=== PATIENT | female | born 1965 | race African-American/Black ===

== ENCOUNTER 2016-12-15 07:53 | Emergency (ER) | payer MEDICARE, MEDICAID ==
[~2016-12-15] VITALS: Ht 162.6 cm; Wt 136.1 kg
[~2016-12-15 07:53] MED LIST: ALBUTEROL SULF8.5 GM INH; FLUOXETINE HCL40 MG; FUROSEMIDE40 MG ORAL; GABAPENTIN300 MG; HYDROCODON-ACE1 EA13; LEVOTHYROXINE100 MCG PO; METHYLPREDNISOLO4 M2; NORETHINDRONE AC5 MG PO; PREDNISONE20 MG ORAL; SYMBICORT 16010.2 G1
[2016-12-15] MEDS ORDERED: NEOMYCIN-POLYMY10 ML OT (08:22)
[2016-12-15] MEDS ORDERED: LINESS PO (08:22)
[2016-12-15] MEDS ORDERED: PROAIR HFA8.5 GM INH (08:22)
[2016-12-15] MEDS ORDERED: ATARAX25 MG ORAL (08:22)
[2016-12-15] MEDS ORDERED: LISINOPRIL20 MG ORAL (08:22)
[2016-12-15] MEDS ORDERED: CARVEDILOL12.5 MG ORAL (08:22)
[2016-12-15] MEDS ORDERED: Norco 5mg/325mg tab ORAL ONE (08:30)
--- NOTE | 2016-12-15 08:34 | Emergency Room Report ---
History of Present Illness General Chief Complaint: Chest Pain Source: Patient Present Illness HPI Patient presents with left-sided chest pain. Been going on for 3 days. She is uncertain how began but she felt it in her left breast. She has not noticed any masses there. It's more positional and worsened when she bends over. She also has some corresponding pain in her left upper back. She has no medication to take at home for pain at this time. Pain is 7/10. Intermittent. Nonexertional. She has a history of fibromyalgia. She received a steroid injection last month for a sinus infection. Since that time she's felt some swelling in her arms. She has a history of congestive heart failure also. She states that she's had some swelling in her ankles recently. There's no calf pain. She has no hemoptysis and has not had blood clots in the past. The patient was unable to sleep last night. She has a history of sleep apnea. The pain kept her awake. She has no Charlotte at home at this time. She denies any fevers, nausea, vomiting, diarrhea or dysuria. No mammogram in the past. She doesn't feel mass or have d/c. Allergies: Coded Allergies: ASPIRIN (Unverified Allergy, Unknown, 01/13/14) [place] (Unverified Allergy, Unknown, 01/13/14) PENICILLINS (Unverified Allergy, Unknown, 01/13/14) SULFA (SULFONAMIDE ANTIBIOTICS) (Unverified Allergy, Unknown, 01/13/14) Patient History Past Medical History: see triage record Social History: Denies: alcohol use, drug use, smoking Social History Narrative Brought by course instructor Reviewed Nursing Documentation: PMH: Agreed, PSxH: Agreed Nursing Documentation-PMH Past Medical History: No History, Except For Hx Hypertension: Yes Hx Pacemaker: No Hx Asthma: No Hx COPD: Yes Hx Diabetes: No Hx Cancer: No Hx Gastrointestinal Problems: Yes Hx Dialysis: No History Of Psychiatric Problem: Yes - depression anxiety Hx Neurological Problems: No Hx Cerebrovascular Accident: Yes - CVA Hx Seizures: No Hx Dizziness: Yes Hx Weakness: Yes Review of Systems All Other Systems: negative except mentioned in HPI Physical Exam Vital Signs Date Time Temp Pulse Resp B/P Pulse Ox O2 Delivery O2 Flow Rate FiO2 12/15/16 08:05 98.2 91 24 133/74 96 Room Air Sp02 EP Interpretation: reviewed, normal General Appearance: well appearing, no apparent distress, GCS 15, obese Head: normocephalic, atraumatic Eyes: bilateral eye PERRL, bilateral eye normal inspection ENT: moist mucus membranes Neck: supple Respiratory: lungs clear, normal breath sounds, other - upper back muscle tenderness Cardiovascular #1: regular rate, rhythm, no edema Cardiovascular #2: 2+ radial (R) Gastrointestinal: normal inspection, normal bowel sounds, non tender, no mass, non-distended, overweight Musculoskeletal: back normal, digits/nails normal, gait/station normal, normal range of motion, non-tender, no calf tenderness Neurologic: alert, oriented x3, motor strength/tone normal, sensory intact, grossly normal Psychiatric: mood/affect normal Skin: normal inspection, warm/dry Medical Decision Making Diagnostic Impression: Primary Impression: Chest pain Qualified Codes: R07.1 - Chest pain on breathing Additional Impression: Morbid obesity with body mass index (BMI) greater than or equal to 50 ER Course The patient presents with left-sided chest pain. The history is more consistent with musculoskeletal pain however to exclude cardiac cause. Physical exam is against pulmonary embolus. Also she has no cough or symptoms of COPD or bronchitis. Evaluation will be with EKG, labs and chest x-ray. The patient will be treated with Charlotte. She has an aspirin allergy. EKG no sig changes. CXR negative. Labs unremarkable (normal troponin). Patient improved with treatment. Patient stable for outpatient observation and treatment. Laboratory Tests Test 12/15/16 08:35 White Blood Count 4.9 K/UL (4.8-10.8) Red Blood Count 4.44 M/UL (4.20-5.40) Hemoglobin 9.3 G/DL (12.0-16.0) L Hematocrit 33.4 % (37.0-47.0) L Mean Corpuscular Volume 75 FL (80-99) L Mean Corpuscular Hemoglobin 21.0 PG (27.0-31.0) L Mean Corpuscular Hemoglobin Concent 27.9 G/DL (32.0-36.0) L Red Cell Distribution Width 17.6 % (11.6-14.8) H Platelet Count 325 K/UL (150-450) Mean Platelet Volume 6.2 FL (6.5-10.1) L Neutrophils (%) (Auto) 49.7 % (45.0-75.0) Lymphocytes (%) (Auto) 37.9 % (20.0-45.0) Monocytes (%) (Auto) 8.1 % (1.0-10.0) Eosinophils (%) (Auto) 2.7 % (0.0-3.0) Basophils (%) (Auto) 1.6 % (0.0-2.0) Prothrombin Time 10.6 SEC (9.30-11.50) Prothrombin Time INR 1.0 (0.9-1.1) PTT 26 SEC (23-33) Sodium Level 139 mEQ/L (135-145) Potassium Level 4.2 mEQ/L (3.4-4.9) Chloride Level 99 mEQ/L (98-107) Carbon Dioxide Level 27 mEQ/L (20-30) Anion Gap 13 (5-15) Blood Urea Nitrogen 9 mg/dL (7-23) Creatinine 0.6 mg/dL (0.5-0.9) Estimate Glomerular Filtration Rate > 60 mL/min (>60) Glucose Level 93 mg/dL (74-106) Calcium Level 8.8 mg/dL (8.6-10.2) Total Bilirubin 0.2 mg/dL (0.0-1.2) Aspartate Amino Transferase (AST) 19 U/L (5-40) Alanine Aminotransferase (ALT) 10 U/L (3-33) Alkaline Phosphatase 92 U/L (35-104) Total Creatine Kinase 86 U/L (26-140) Troponin I < 0.30 ng/mL (<=0.30) Pro-B-Type Natriuretic Peptide 64 pg/mL (0-125) Total Protein 7.7 g/dL (6.6-8.7) Albumin 3.6 g/dL (3.5-5.2) Globulin 4.1 g/dL Albumin/Globulin Ratio 0.8 (1.0-2.7) L EKG Diagnostic Results Rate: normal Rhythm: NSR ST Segments: no acute changes Rhythm Strip Diag. Results EP Interpretation: yes Rhythm: NSR, no PVC's, no ectopy Chest X-Ray Diagnostic Results EP Interpretation: Yes Findings: no consolidation, no effusion, no pneumothorax, no acute cardiopulmonary disease Number of Views: 1 Last Vital Signs Date Time Temp Pulse Resp B/P Pulse Ox O2 Delivery O2 Flow Rate FiO2 12/15/16 10:57 98.2 75 15 139/69 99 Room Air Status: improved Disposition: HOME, SELF-CARE Condition: Improved Scripts Hydrocodone Bit/Acetaminophen 5-325* (NORCO 5-325*) 1 Each Tablet 1 TAB ORAL Q6H Y for For Pain, #10 TAB 0 Refills Prov: Claudy Mir M.D. 12/15/16 Claudy Mir M.D. Dec 15, 2016 08:34
[2016-12-15 08:37] VITALS: BP 146/79
[2016-12-15 09:04] LABS: BASOPHILS % (AUTO) 1.6 % (0.0-2.0); EOSINOPHILS % (AUTO) 2.7 % (0.0-3.0); LYMPHOCYTES % (AUTO) 37.9 % (20.0-45.0); MEAN CORPUSCULAR HGB CONC 27.9 G/DL (32.0-36.0); MEAN CORPUSCULAR VOLUME 75 FL (80-99); MEAN PLATELET VOLUME 6.2 FL (6.5-10.1); MONOCYTES % (AUTO) 8.1 % (1.0-10.0); NEUTROPHILS % (AUTO) 49.7 % (45.0-75.0); PLATELET COUNT 325 K/UL (150-450); RED BLOOD COUNT 4.44 M/UL (4.20-5.40); RED CELL DISTRIBUTION WIDTH 17.6 % (11.6-14.8); WHITE BLOOD COUNT 4.9 K/UL (4.8-10.8)
[2016-12-15 09:10] LABS: PROTHROMBIN TIME 10.6 SEC (9.30-11.50)
[2016-12-15 09:37] LABS: TROPONIN I < 0.30 ng/mL (<=0.30)
[2016-12-15 09:40] LABS: ALANINE AMINOTRANSFERASE 10 U/L (3-33); ALBUMIN/GLOBULIN RATIO 0.8 (1.0-2.7); ANION GAP 13 (5-15); ASPARTATE AMINO TRANSFERASE 19 U/L (5-40); CALCIUM 8.8 mg/dL (8.6-10.2); CARBON DIOXIDE 27 mEQ/L (20-30); CHLORIDE 99 mEQ/L (98-107); CREATININE 0.6 mg/dL (0.5-0.9); GLOMERULAR FILTRATION RATE > 60 mL/min (>60); HEMOLYSIS 16; POTASSIUM 4.2 mEQ/L (3.4-4.9); SODIUM 139 mEQ/L (135-145); TOTAL PROTEIN 7.7 g/dL (6.6-8.7)
--- NOTE | 2016-12-15 10:15 | Diagnostic Imaging Report ---
Indication: Chest Pain Comparison: 04/15/14 A single view chest radiograph was obtained. Findings: Mild interstitial edema present. The heart is mildly enlarged. Bones are slightly osteopenic. Impression: Mild CHF suspected
[2016-12-15 10:45] VITALS: BP 139/69
[2016-12-15] MEDS ORDERED: NORCO 5-325 TA1 EACH ORAL (10:48)
[2016-12-15 10:57] VITALS: BP 139/69
--- NOTE | 2016-12-15 16:36 | Cardiology Report ---
APPROVED REPORT EKG Measurement Heart [id number] Normal sinus rhythm Normal ECG
== END 2016-12-15 10:58 | disposition home or self-care (01) ==
LOC: EMR 08:32
DX: R07.1 Chest pain on breathing (principal); E66.01 Morbid (severe) obesity due to excess calories; Z68.43 Body mass index [BMI] 50.0-59.9, adult; M54.9 Dorsalgia, unspecified; M79.7 Fibromyalgia; Z88.6 Allergy status to analgesic agent; Z88.2 Allergy status to sulfonamides; Z88.0 Allergy status to penicillin; I10 Essential (primary) hypertension; G47.30 Sleep apnea, unspecified; I50.9 Heart failure, unspecified; Z86.73 Personal history of transient ischemic attack (TIA), and cerebral infarction without residual deficits; Z86.59 Personal history of other mental and behavioral disorders; J44.9 Chronic obstructive pulmonary disease, unspecified
CPT/HCPCS: 36415; 71010; 80053; 82550; 83880; 84484; 85025; 85610; 85730; 93005; 99283

== ENCOUNTER 2018-08-20 14:56 | Emergency (ER) | payer MEDICARE, MEDICAID ==
[~2018-08-20] VITALS: Ht 162.6 cm; Wt 127.0 kg
[~2018-08-20 14:56] MED LIST changes: +ATARAX25 MG ORAL; +CARVEDILOL12.5 MG ORAL; +LINESS PO; +LISINOPRIL20 MG ORAL; +NEOMYCIN-POLYMY10 ML OT; +NORCO 5-325 TA1 EACH ORAL; +PROAIR HFA8.5 GM INH
[2018-08-20 15:05] VITALS: BP 113/70
[2018-08-20] MEDS ORDERED: PROTONIX40 MG ORAL (15:13)
[2018-08-20] MEDS ORDERED: DICLOFENAC SODI75 MG ORAL (15:13)
[2018-08-20] MEDS ORDERED: Bacitracin Oint UD TOPIC ONE ×3 (15:24→15:45)
[2018-08-20] MEDS ORDERED: Morphine Sulfate 4mg/ml Inj (IV/IM USE ONLY) IVP ONE (15:30)
--- NOTE | 2018-08-20 15:32 | Emergency Room Report ---
History of Present Illness General Chief Complaint: Skin Rash/Abscess Source: Patient Present Illness HPI Patient present to the ER with complaints of ongoing wound to her left lower leg Patient has general home health nursing and also wound care that this is the patient wound care solid patient on Sunday had dressing changes I spoke to michael at [phone] Reports that she changed the dressing today she felt that there was increased fell smell to it over the past several weeks She also reports of the signs of the wound has increased from a quarter-sized to the size it is today Denies any fevers and eyes any chills patient herself complains of increased pain to the area Denies any other trauma Allergies: Coded Allergies: ASPIRIN (Unverified Allergy, Unknown, 01/13/14) [place] (Unverified Allergy, Unknown, 01/13/14) PENICILLINS (Unverified Allergy, Unknown, 01/13/14) SULFA (SULFONAMIDE ANTIBIOTICS) (Unverified Allergy, Unknown, 01/13/14) Patient History Past Medical History: see triage record Pertinent Family History: none Reviewed Nursing Documentation: PMH: Agreed; PSxH: Agreed Nursing Documentation-PMH Past Medical History: No History, Except For Hx Hypertension: Yes Hx Pacemaker: No Hx Asthma: No Hx COPD: Yes Hx Diabetes: No Hx Cancer: No Hx Gastrointestinal Problems: Yes Hx Dialysis: No Hx Neurological Problems: No Hx Cerebrovascular Accident: Yes - CVA Hx Seizures: No Hx Dizziness: Yes Hx Weakness: Yes Review of Systems All Other Systems: negative except mentioned in HPI Physical Exam Vital Signs Date Time Temp Pulse Resp B/P (MAP) Pulse Ox O2 Delivery O2 Flow Rate FiO2 08/20/18 15:03 97.7 73 19 111/66 97 Room Air Sp02 EP Interpretation: reviewed, normal General Appearance: no apparent distress Head: normocephalic, atraumatic Eyes: bilateral eye PERRL, bilateral eye EOMI ENT: hearing grossly normal, normal pharynx Neck: supple Respiratory: lungs clear Cardiovascular #1: regular rate, rhythm Gastrointestinal: non tender, soft Musculoskeletal: other - Approximately 4 x 3 cm wound on the left lower extremity laterally, the edges are clear and clean no obvious discharge, this appears to be a venous ulcer Neurologic: alert, oriented x3, responsive Skin: other - As above Lymphatic: no adenopathy Medical Decision Making Diagnostic Impression: Primary Impression: Venous stasis ulcer ER Course Given the patient's history and presentation Given the complaints ultrasound was obtained to rule out DVT This was negative patient's blood work reveals anemia with hemoglobin of 8.6 Patient reports that she did have significant transfusion several years ago However reports that she has not had any blood test performed over the past 3-4 years Anchors the patient to have improved follow-up with her primary physician patient appears to be receiving significant pain medication through pain specialty However further overall evaluation is recommended specifically repeat hemoglobin level next one month after taking iron pills Labs Test 08/20/18 15:45 White Blood Count 6.6 K/UL (4.8-10.8) Red Blood Count 4.09 M/UL (4.20-5.40) Hemoglobin 8.6 G/DL (12.0-16.0) Hematocrit 29.5 % (37.0-47.0) Mean Corpuscular Volume 72 FL (80-99) Mean Corpuscular Hemoglobin 21.0 PG (27.0-31.0) Mean Corpuscular Hemoglobin Concent 29.2 G/DL (32.0-36.0) Red Cell Distribution Width 17.7 % (11.6-14.8) Platelet Count 356 K/UL (150-450) Mean Platelet Volume 5.0 FL (6.5-10.1) Neutrophils (%) (Auto) 55.9 % (45.0-75.0) Lymphocytes (%) (Auto) 33.0 % (20.0-45.0) Monocytes (%) (Auto) 6.3 % (1.0-10.0) Eosinophils (%) (Auto) 3.8 % (0.0-3.0) Basophils (%) (Auto) 1.0 % (0.0-2.0) Sodium Level 139 MMOL/L (136-145) Potassium Level 4.1 MMOL/L (3.5-5.1) Chloride Level 102 MMOL/L (98-107) Carbon Dioxide Level 30 MMOL/L (21-32) Anion Gap 7 mmol/L (5-15) Blood Urea Nitrogen 15 mg/dL (7-18) Creatinine 0.9 MG/DL (0.55-1.30) Estimat Glomerular Filtration Rate > 60 mL/min (>60) Glucose Level 92 MG/DL (74-106) Calcium Level 9.0 MG/DL (8.5-10.1) CT/MRI/US Diagnostic Results CT/MRI/US Diagnostic Results : Impression left lower extremity venous ultrasound: negative Last Vital Signs Date Time Temp Pulse Resp B/P (MAP) Pulse Ox O2 Delivery O2 Flow Rate FiO2 08/20/18 15:03 97.7 73 19 111/66 97 Room Air Status: improved Disposition: HOME, SELF-CARE Condition: Improved Referrals: NON PHYSICIAN (PCP) Additional Instructions: Patient is provided with the discharge instructions notified to follow up with primary doctor in the next 2-3 days otherwise return to the er with any worsening symptoms. Please note that this report is being documented using ComActivity technology. This can lead to erroneous entry secondary to incorrect interpretation by the dictating instrument. Jelani Carranza DO Aug 20, 2018 15:32
[2018-08-20 15:53] LABS: EOSINOPHILS % (AUTO) 3.8 % (0.0-3.0); HEMATOCRIT 29.5 % (37.0-47.0); HEMOGLOBIN 8.6 G/DL (12.0-16.0); MEAN CORPUSCULAR VOLUME 72 FL (80-99); MONOCYTES % (AUTO) 6.3 % (1.0-10.0); NEUTROPHILS % (AUTO) 55.9 % (45.0-75.0); PLATELET COUNT 356 K/UL (150-450); RED BLOOD COUNT 4.09 M/UL (4.20-5.40); RED CELL DISTRIBUTION WIDTH 17.7 % (11.6-14.8); WHITE BLOOD COUNT 6.6 K/UL (4.8-10.8)
[2018-08-20 16:10] LABS: ANION GAP 7 mmol/L (5-15); BLOOD UREA NITROGEN 15 mg/dL (7-18); CARBON DIOXIDE 30 MMOL/L (21-32); CHLORIDE 102 MMOL/L (98-107); CREATININE 0.9 MG/DL (0.55-1.30); POTASSIUM 4.1 MMOL/L (3.5-5.1); SODIUM 139 MMOL/L (136-145)
[2018-08-20 16:37] VITALS: BP 112/68
--- NOTE | 2018-08-20 17:19 | Diagnostic Imaging Report ---
EXAM: US Duplex Left Lower Extremity Veins CLINICAL HISTORY: EMILY TECHNIQUE: Real-time duplex ultrasound scan of the left lower extremity veins integrating B-mode two-dimensional vascular structure, Doppler spectral analysis, color flow Doppler imaging and compression. COMPARISON: No relevant prior studies available. FINDINGS: Deep veins: Unremarkable. No DVT in the visualized common femoral, femoral, proximal deep femoral or popliteal veins. The veins demonstrate normal color flow, are normally compressible, with normal phasic flow and/or augmentation response. Superficial veins: No thrombus in the visualized segments of the greater saphenous vein. Soft tissues: No acute findings. IMPRESSION: No DVT demonstrated.
== END 2018-08-20 16:39 | disposition home or self-care (01) ==
LOC: EMR 15:27
DX: S81.802A Unspecified open wound, left lower leg, initial encounter (principal); I83.028 Varicose veins of left lower extremity with ulcer other part of lower leg; Z88.6 Allergy status to analgesic agent; Z88.0 Allergy status to penicillin; Z88.2 Allergy status to sulfonamides; I10 Essential (primary) hypertension; J44.9 Chronic obstructive pulmonary disease, unspecified; Z86.73 Personal history of transient ischemic attack (TIA), and cerebral infarction without residual deficits
CPT/HCPCS: 36415; 80048; 85025; 93971; 96374; 96375; 99284; J2270; J2405

== ENCOUNTER 2018-12-02 16:22 | Inpatient (IN) | payer MEDICARE, MEDICAID ==
[~2018-12-02] VITALS: Ht 163.8 cm; Wt 138.3 kg
[~2018-12-02 16:22] MED LIST changes: +DICLOFENAC SODI75 MG ORAL; -GABAPENTIN300 MG; +GABAPENTIN300 MG ORAL; +PROTONIX40 MG ORAL
[2018-12-02 20:00] VITALS: BP 118/70
--- NOTE | 2018-12-02 20:00 | NUR ---
NURSE NOTES: Pt came to [facility] from [facility] via [facility] by PRN, Unit [address], WILFREDO Negron. C/o pain 7/10 on her L. Leg. Dressing is applied on the leg. Belonging checked and pt requested vargas and credit card in the security box. X Ray Technologist made aware of the request. quality assurance monitor was applied, SR in the monitor. BP 118/70, HR 79, RR 20, T.98.3, O2 sat 99%. Will contact PCP for admission order. Addendum: 12/02/18 at 2230 by HAROLDO GREGG RN Dr. Sanchez was notified and he ordered Full code, Cardiac diet, No heparin and no DVT order, [place] 5/325 PO Q6 PRN, Gabapentin 300mg PO TID, Duoneb Q4. Dr. Hartley for wound consult, clarified keep the dressing as is until the wound consult time. Will carry out the order.
[2018-12-02] MEDS: HYDROcodone/Acetamin 5/325 tab ORAL PRN (22:03)
[2018-12-02] MEDS ORDERED: Albuterol/Ipratropium 3ml neb HHN PRN (22:15)
--- NOTE | 2018-12-02 22:30 | NUR ---
NURSE NOTES: Pt requested to have IV pain med instead of PO and sleeping pill. Dr. Sanchez was paged for it. Awaiting call back. Addendum: 12/03/18 at 0220 by HAROLDO GREGG RN PCP ordered Morphine 4mg Q4HR IVP, Ambien 5mg PO HSPRN. Order carried out.
[2018-12-02] MEDS ORDERED: Zolpidem 5mg tab ORAL PRN (23:15)
[2018-12-03] VITALS: BP 89/59
[2018-12-03] MEDS: Morphine Sulfate 4mg/ml Inj (IV USE ONLY) IVP PRN ×6 (00:07→20:09)
--- NOTE | 2018-12-03 01:00 | NUR ---
NURSE NOTES: Completed 1 unit of PRBC transfusion at 0100. No adverse reaction noted. Post transfusion VS is Temp: 98.0 F, HR: 89 bpm, BP: 117/62. Will continue to monitor pt. Addendum: 12/04/18 at 0320 by Marleen Rivera Mai, RN WRONG DATE! CORRECT DATE: 12/04/18 AT 0100
--- NOTE | 2018-12-03 03:15 | NUR ---
NURSE NOTES: Pt was assisted to use bedpan and cleaned and repositioned. Pt tolerated well . Will continue to monitor.
[2018-12-03 04:00] VITALS: BP 93/47
[2018-12-03 06:32] LABS: MEAN CORPUSCULAR VOLUME 77 FL (80-99); PLATELET COUNT 301 K/UL (150-450); RED CELL DISTRIBUTION WIDTH 18.5 % (11.6-14.8)
[2018-12-03 06:38] LABS: HEMOGLOBIN 5.9 G/DL (12.0-16.0)
--- NOTE | 2018-12-03 06:47 | NUR ---
NURSE NOTES: Hgb 5.9 and low SBP of 80-[address] Sanchez and 2 unit of pRBC was ordered. Will carry out the order.
[2018-12-03 06:50] LABS: ALANINE AMINOTRANSFERASE 11 U/L (12-78); ALBUMIN 1.8 G/DL (3.4-5.0); ALBUMIN/GLOBULIN RATIO 0.3 (1.0-2.7); ALKALINE PHOSPHATASE 56 U/L (46-116); ANION GAP 4 mmol/L (5-15); ASPARTATE AMINO TRANSFERASE 11 U/L (15-37); BILIRUBIN,TOTAL 0.2 MG/DL (0.2-1.0); BLOOD UREA NITROGEN 31 mg/dL (7-18); CALCIUM 8.3 MG/DL (8.5-10.1); CARBON DIOXIDE 29 MMOL/L (21-32); CHLORIDE 107 MMOL/L (98-107); CREATININE 0.9 MG/DL (0.55-1.30); POTASSIUM 4.3 MMOL/L (3.5-5.1); SODIUM 140 MMOL/L (136-145)
--- NOTE | 2018-12-03 07:20 | NUR ---
HAND-OFF: Report given to WILFREDO Limon.Blood transfusion consent is done, placed in the chart.
--- NOTE | 2018-12-03 07:20 | NUR ---
NURSE NOTES:OBTAINED REPORT FROM HAROLDO. PT RESTING IN BED FREE FROM APPARENT DISTRESS.
[2018-12-03 08:00] VITALS: BP 94/50
--- NOTE | 2018-12-03 08:53 | NUR ---
PER LAB ([facility]), PT IS POSITIVE FOR ANTIBODIES AND REQUIRES BLOOD WORKUP TO BE SENT TO OUTSIDE LAB PRIOR TO PT RECEIVING BLOOD TRANSFUSION. MD APPIAH AWARE.
[2018-12-03] MEDS: Carvedilol 12.5mg tab ORAL SCH ×2 (08:57→21:00)
[2018-12-03] MEDS ORDERED: Lisinopril 20mg tab ORAL SCH (09:00)
[2018-12-03] MEDS: Lisinopril 20mg tab ORAL SCH (09:00)
[2018-12-03] MEDS ORDERED: Carvedilol 12.5mg tab ORAL SCH (09:00)
--- NOTE | 2018-12-03 09:12 | Consultation ---
History of Present Illness General Date patient seen: Dec 03, 2018 Present Illness HPI 53 year old female with hx of morbid obesity, HTN, COPD, STELLA, chronic venous stasis leg ulcers was taken to [facility] with CC of bleeding from the leg ulcer. Pt was seen by home health nurse and the bandage was removed and the patient had vigorous bleeding. Paramedics estimated one liter of blood loss. Pt is not on any anticoagulants like Coudamin or Plavix. She has a history of anemia in the past and has received multiple transfusions in the past. Allergies: Coded Allergies: ASPIRIN (Unverified Allergy, Unknown, 01/13/14) [place] (Unverified Allergy, Unknown, 01/13/14) PENICILLINS (Unverified Allergy, Unknown, 01/13/14) SULFA (SULFONAMIDE ANTIBIOTICS) (Unverified Allergy, Unknown, 01/13/14) Medication History Scheduled Albuterol Sulfate* (Proair Hfa*), 1 PUFF INH Q12HR, (Reported) Carvedilol* (Carvedilol*), 12.5 MG ORAL EVERY 12 HOURS, (Reported) Diclofenac Sod* (Voltaren*), 75 MG ORAL THREE TIMES A DAY, (Reported) Fluoxetine Hcl* (Fluoxetine Hcl*), 40 BID, (Reported) Furosemide* (Lasix*), 40 MG ORAL DAILY, (Reported) Gabapentin* (Gabapentin*), 300 MG ORAL THREE TIMES A DAY, (Reported) Hydroxyzine HCl (Hydroxyzine HCl), 25 MG ORAL BEDTIME, (Reported) Levothyroxine Sodium* (Levothyroxine Sodium*), 100 MCG PO DAILY, (Reported) Lisinopril (Lisinopril*), 40 MG ORAL DAILY, (Reported) Neomycin/Polymyxin B Sulf/Hc (Vhcteakv-Timphqgth-Ai Ear Soln), 10 ML OT BID, ( Reported) Norethindrone Acetate (Norethindrone Acetate), 5 MG PO BID, (Reported) Pantoprazole* (Protonix*), 40 MG ORAL DAILY, (Reported) [Liness], 145 MCG PO DAILY, (Reported) Scheduled PRN Hydrocodone Bit/Acetaminophen 5-325* (Palacios 5-325*), 1 TAB ORAL Q6H PRN for For Pain Miscellaneous Medications Budesonide/Formoterol Fumarate (Symbicort 160-4.5 Mcg Inhaler), (Reported) Hydrocodone Bit/Acetaminophen 10-325* (Hydrocodon-Acetaminophn 10-325*), 1 TAB, (Reported) Methylprednisolone (Methylprednisolone), (Reported) Patient History Healthcare decision maker N Resuscitation status Full Code Advanced Directive on File Past Medical/Surgical History Past Medical/Surgical History: (1) Morbid obesity with body mass index (BMI) greater than or equal to 50 (2) Chronic cutaneous venous stasis ulcer (3) Sleep apnea (4) HTN (hypertension) (5) CHF (congestive heart failure) Review of Systems All Other Systems: negative except mentioned in HPI Physical Exam General Appearance: WD/WN Lines, tubes and drains: peripheral HEENT: normocephalic, atraumatic Neck: non-tender, normal alignment Respiratory/Chest: chest wall non-tender, lungs clear Breasts: no masses Cardiovascular/Chest: normal peripheral pulses Abdomen: normal bowel sounds, non tender Extremities: other - clean dressing of both lower legs. Last 24 Hour Vital Signs Date Time Temp Pulse Resp B/P (MAP) Pulse Ox O2 Delivery O2 Flow Rate FiO2 12/03/18 08:57 85 94/42 12/03/18 07:56 92 14 Room Air 12/03/18 04:00 97.7 91 18 93/47 (62) 97 12/03/18 03:40 88 12/03/18 00:00 99.6 81 20 89/59 (69) 97 12/02/18 23:29 94 12/02/18 21:47 Room Air 12/02/18 20:29 86 12/02/18 20:00 98.3 79 20 118/70 (86) 99 Intake and Output 12/02/18 12/03/18 19:00 07:00 # Voids 3 Laboratory Tests Test 12/03/18 05:46 White Blood Count 9.0 K/UL (4.8-10.8) Red Blood Count 2.60 M/UL (4.20-5.40) L Hemoglobin 5.9 G/DL (12.0-16.0) *L Hematocrit 20.0 % (37.0-47.0) L Mean Corpuscular Volume 77 FL (80-99) L Mean Corpuscular Hemoglobin 22.7 PG (27.0-31.0) L Mean Corpuscular Hemoglobin Concent 29.5 G/DL (32.0-36.0) L Red Cell Distribution Width 18.5 % (11.6-14.8) H Platelet Count 301 K/UL (150-450) Mean Platelet Volume 5.1 FL (6.5-10.1) L Neutrophils (%) (Auto) % (45.0-75.0) Lymphocytes (%) (Auto) % (20.0-45.0) Monocytes (%) (Auto) % (1.0-10.0) Eosinophils (%) (Auto) % (0.0-3.0) Basophils (%) (Auto) % (0.0-2.0) Differential Total Cells Counted 100 Neutrophils % (Manual) 62 % (45-75) Lymphocytes % (Manual) 36 % (20-45) Monocytes % (Manual) 2 % (1-10) Eosinophils % (Manual) 0 % (0-3) Basophils % (Manual) 0 % (0-2) Band Neutrophils 0 % (0-8) Platelet Estimate Adequate Platelet Morphology Normal Hypochromasia 4+ Anisocytosis 2+ Microcytosis 1+ Sodium Level 140 MMOL/L (136-145) Potassium Level 4.3 MMOL/L (3.5-5.1) Chloride Level 107 MMOL/L (98-107) Carbon Dioxide Level 29 MMOL/L (21-32) Anion Gap 4 mmol/L (5-15) L Blood Urea Nitrogen 31 mg/dL (7-18) H Creatinine 0.9 MG/DL (0.55-1.30) Estimat Glomerular Filtration Rate > 60 mL/min (>60) Glucose Level 118 MG/DL (74-106) H Calcium Level 8.3 MG/DL (8.5-10.1) L Phosphorus Level 3.5 MG/DL (2.5-4.9) Magnesium Level 2.0 MG/DL (1.8-2.4) Total Bilirubin 0.2 MG/DL (0.2-1.0) Aspartate Amino Transf (AST/SGOT) 11 U/L (15-37) L Alanine Aminotransferase (ALT/SGPT) 11 U/L (12-78) L Alkaline Phosphatase 56 U/L (46-116) Troponin I 0.011 ng/mL (0.000-0.056) Total Protein 7.5 G/DL (6.4-8.2) Albumin 1.8 G/DL (3.4-5.0) L Globulin 5.7 g/dL Albumin/Globulin Ratio 0.3 (1.0-2.7) L Height (Feet): 5 Height (Inches): 4.50 Weight (Pounds): 287 Medications Current Medications Medications (Trade) Dose Ordered Sig/Rogerio Route PRN Reason Start Time Stop Time Status Last Admin Dose Admin Acetaminophen/ Hydrocodone Bitart (Palacios 5/325) 1 tab Q6H PRN ORAL Moderate Pain (Pain Scale 4-6) 12/02/18 21:45 12/09/18 21:44 12/02/18 22:03 Albuterol/ Ipratropium (Albuterol/ Ipratropium) 3 ml Q4H PRN HHN Shortness of Breath 12/02/18 22:15 12/07/18 22:14 Carvedilol (Coreg) 12.5 mg EVERY 12 HOURS ORAL 12/03/18 09:00 01/02/19 08:59 Dextrose (Dextrose 50%) 25 ml Q30M PRN IV Hypoglycemia 12/02/18 22:15 01/01/19 22:14 Dextrose (Dextrose 50%) 50 ml Q30M PRN IV Hypoglycemia 12/02/18 22:15 01/01/19 22:14 Fluoxetine HCl (PROzac) 10 mg BID ORAL 12/03/18 09:00 01/02/19 08:59 Gabapentin (Neurontin) 300 mg THREE TIMES A DAY ORAL 12/03/18 09:00 01/02/19 08:59 Levothyroxine Sodium (Synthroid) 100 mcg Q24H ORAL 12/04/18 06:30 01/03/19 06:29 Lisinopril (Prinivil) 40 mg DAILY ORAL 12/03/18 09:00 01/02/19 08:59 Morphine Sulfate (Morphine Sulfate) 4 mg Q4H PRN IVP For Pain 12/02/18 23:15 12/09/18 23:14 12/03/18 04:32 Sodium Chloride 1,000 ml @ 999 mls/hr Q1H1M ONCE IV 12/03/18 09:00 12/03/18 10:00 12/03/18 08:59 Zolpidem Tartrate (Ambien) 5 mg HSPRN PRN ORAL Insomnia 12/02/18 23:15 12/09/18 23:14 Assessment/Plan Problem List: (1) Acute hemorrhage ICD Codes: R58 - Hemorrhage, not elsewhere classified SNOMED: 061318866 (2) Severe anemia ICD Codes: D64.9 - Anemia, unspecified SNOMED: 337036293 (3) Chronic cutaneous venous stasis ulcer ICD Codes: I83.009 - Varicose veins of unspecified lower extremity with ulcer of unspecified site; L97.909 - Non-pressure chronic ulcer of unspecified part of unspecified lower leg with unspecified severity SNOMED: 94600916, 144576647 (4) HTN (hypertension) ICD Codes: I10 - HTN (hypertension) SNOMED: 90309087 (5) Morbid obesity with body mass index (BMI) greater than or equal to 50 ICD Codes: E66.01 - Morbid (severe) obesity due to excess calories SNOMED: 088467364, 225416255 Diagnosis [place] V: wound care prbc prn monitor BP resume BP meds once BP is more stable NS one liter now to correct the hypovolemia dvt prophylaxis. Myrna Mckeon MD Dec 03, 2018 09:12
[2018-12-03] MEDS: FLUoxetine 10mg cap ORAL SCH ×2 (09:14→17:03)
--- NOTE | 2018-12-03 09:37 | NUR ---
NURSE NOTES: Wound consult in per Md Sanchez for Dr Singh, md Singh called Lm
--- NOTE | 2018-12-03 11:30 | NUR ---
PT FELIPE ($130) SENT TO [facility]AFE BY NURSING CIVIL ENGINEERING PROJECT MANAGER (DEBBY).
[2018-12-03 12:00] VITALS: BP 109/60
--- NOTE | 2018-12-03 12:19 | NUR ---
CASE MANAGEMENT:REVIEW 53 YR OLD FEMALE TRANSFERRED FROM [place] CC: LEG ULCER BLEEDING SI: ACUTE HEMORRHAGE. SEVERE ANEMIA 97.7 91 18 93/47 97% ON RA H/H-5.9/20.0 IS: 1L NS BOLUS TRANSFUSE 2 UNITS PRBC'S : TO TELEMETRY INTERQUAL CRITERIA
[2018-12-03 16:00] VITALS: BP 90/50
--- NOTE | 2018-12-03 16:28 | NUR ---
NURSE NOTES: Called Dr Singh regarding left leg wound, that needs to be seen. Lm again with [facility] staff members.
--- NOTE | 2018-12-03 17:50 | History & Physical ---
History and Physical History & Physicial Dictated for Int Med-Dr Sanchez no. [id number]. Austin Botello MD Dec 03, 2018 17:50
--- NOTE | 2018-12-03 18:00 | NUR ---
SPOKE TO MD LOPEZ WHO STATES PT'S LLE WOUND WILL BE ASSESSED AND EVALUATED WITH MD CHACON. PER LAB ([facility]), PT'S PRBC HAS NOT ARRIVED TO BLOOD BANK YET FROM OUTSIDE LAB. LAB WILL NOTIFY UNIT ONCE IT IS RECEIVED.
--- NOTE | 2018-12-03 18:13 | Cardiology Report ---
APPROVED REPORT EXAM: Two-dimensional and M-mode echocardiogram with Doppler and color Doppler. INDICATION EJECTION FRACTION M-Mode DIMENSIONS IVSd0.9 (0.7-1.1cm)Left Atrium (MM)2.8 (1.6-4.0cm) LVDd5.7 (3.5-5.6cm)Aortic Root3.6 (2.0-3.7cm) PWd0.9 (0.7-1.1cm)Aortic Cusp Exc.1.6 (1.5-2.0cm) IVSs1.3 cm LVDs3.1 (2.5-4.0cm) PWs1.5 cm Other Information Technically limited study due to body habitus. Technically difficult study with poor apical acoustic window Normal left ventricular chamber size, systolic function and wall motion to the extent visualized the apex was not adequately visualized . Left ventricular ejection fraction estimated to be 55-60%. Mild left ventricular hypertrophy by 2-D. Anterior Echo-free space, may be due to pericardial fat or effusion. All other cardiac chamber sizes are within normal limits. Aortic valve calcification with normal cusp excursion . Mildly thickened mitral valve leaflets with normal excursion. Mild mitral annulus and aortic root calcification. Pulmonic valve not well visualized. IVC at normal size with physiologic collapse . A color flow and spectral Doppler study was performed and revealed: No aortic insufficiency . Normal left ventricular diastolic function . Trace mitral regurgitation. Mild tricuspid regurgitation. Tricuspid systolic velocities suggests peak right ventricular systolic pressure of 40mmHg,consistent with mild pulmonary hypertension .
--- NOTE | 2018-12-03 19:30 | NUR ---
HAND-OFF: Report given to My RN. Made aware pt's blood transfusion is on hold due to pt positive for antibodies as reported by lab. 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 RN also made aware wound dressing to LLE is to not be changed until MD Singh sees pt.
[2018-12-03 20:00] VITALS: BP 113/50
--- NOTE | 2018-12-03 22:00 | History and Physical Report ---
DATE OF ADMISSION: 12/02/2018 CHIEF COMPLAINT: This is a 53-year-old female, who presents with a chief complaint of bleeding from left calf ulcer. REVIEW OF SYSTEMS: The patient has a history of left calf ulcer. This is presumably secondary to ischemic ulcer. The patient states she has undergone debridement x2 at [facility]. The patient states she was seen by the wound care nurse yesterday, 12/02/2018. After the wound care nurse left, the patient began to bleed profusely. According to the EMS, there is approximately 1 liter blood on the floor. The patient initially presented to [facility] emergency room. The patient is transferred to [facility] for insurance purposes. The patient is admitted with anemia secondary to hemorrhage from left calf ulcer. REVIEW OF SYSTEMS: CONSTITUTIONAL: The patient denies weight loss or weight gain. The patient denies fevers or chills. HEENT: The patient denies ear or throat pain. The patient denies headache. CARDIOVASCULAR: The patient denies palpitation or chest pain. CHEST: The patient denies wheeze or shortness of breath. ABDOMINAL: The patient denies nausea, vomiting, diarrhea, or constipation. GENITOURINARY: The patient denies dysuria or increased frequency of urination. NEUROMUSCULAR: The patient complains of hemorrhage from left calf ulcer as above. The patient denies generalized weakness. PAST MEDICAL HISTORY: Significant for, 1. Hypertension. 2. Gastroesophageal reflux disease. 3. History of osteoarthritis. 4. Fibromyalgia. 5. Major depression. PAST SURGICAL HISTORY: Significant for, 1. Debridement of left leg ulcer x2 at [facility] as above. 2. Cholecystectomy. 3. section x1. 4. Right knee replacement x2. CURRENT MEDICATIONS: 1. Claritin 10 mg p.o. daily. 2. Albuterol metered-dose inhaler two puffs p.o. q.i.d. p.r.n. 3. Symbicort 160/4.5 one puff p.o. twice daily. 4. Carvedilol 12.5 mg p.o. twice daily. 5. Voltaren 75 mg p.o. 3 times daily. 6. Fluoxetine 40 mg p.o. twice daily. 7. Lasix 40 mg p.o. daily. 8. Gabapentin 300 mg p.o. 3 times daily. 9. [place] 10/325 mg one tablet p.o. q.6 h. p.r.n. 10. Hydroxyzine 25 mg p.o. at bedtime. 11. Levoxyl 100 mg p.o. daily. 12. Lisinopril 20 mg 2 tablets p.o. daily. 13. Protonix 40 mg p.o. daily. ALLERGIES: 1. Aspirin. 2. Penicillin. 3. Sulfa drugs. SOCIAL HISTORY: The patient is single and lives alone. The patient denies tobacco or alcohol use. PHYSICAL EXAMINATION: VITAL SIGNS: Temperature 97.7, respirations 17, pulse 76, and blood pressure 96/41. GENERAL: The patient is a well-developed and well-nourished obese female, in no apparent distress. HEENT: Eyes, pupils are equal and responsive to light and accommodation. Extraocular movements are intact. NECK: Supple without lymphadenopathy. CHEST: Lungs are clear to auscultation bilaterally without wheezes or rales. CARDIOVASCULAR: Regular rhythm and rate. S1 and S2 are normal without murmurs, rubs, or gallops. ABDOMEN: Soft, nontender, and nondistended. Positive bowel sounds. No evidence of hepatosplenomegaly. Currently, no rebound or guarding noted. EXTREMITIES: Presence of 2 ulcers, which are more or less confluent on the left calf. Otherwise, without clubbing, cyanosis, or edema. RECTAL/GENITAL: Refused. NEUROLOGIC: Cranial nerves II through XII are grossly intact without focal deficits. Motor strength is 5/5 bilaterally. Deep tendon reflexes are 2+ plantar. LABORATORY STUDIES: WBC 10.6, hemoglobin 7.8, hematocrit 25.4, and platelets 176,000. Sodium 135, potassium 5.6, chloride 103, CO2 24, BUN 33, creatinine 1.4, and glucose 181. ASSESSMENT: This is a 53-year-old female. 1. Ischemic ulcer above left calf. 2. Anemia secondary to blood loss. 3. Hypertension. 4. Hypothyroidism. 5. Gastroesophageal reflux disease. 6. Osteoarthritis. 7. Fibromyalgia. TREATMENT: 1. Anemia of acute blood loss. A type and cross for 2 units of packed RBCs is pending. Anemia is probably secondary to blood loss as above. We will transfuse 2 units of packed RBCs when blood is available. 2. Uncontrolled hypertension. The patient is currently hypotensive secondary to blood loss. 3. Ischemic ulcer left calf. A General Surgery consultation is obtained with Dr. Hartley. 4. Hypothyroidism. Continue Synthroid as above. 5. Gastroesophageal reflux disease. 6. Osteoarthritis. 7. Fibromyalgia. Austin Botello M.D. DR: YURIDIA JOB#: [id number] CC:
--- NOTE | 2018-12-03 22:35 | NUR ---
NURSE NOTES: Picked up 1 unit of PRBC from blood bank at 2210. Completed two RNs verification prior to transfusion. Began blood transfusion at 2230. Vital signs are stable: Temp: 98.7 F, BP 105/54. Will monitor pt and recheck vital signs in 15 minutes. Addendum: 12/03/18 at 2317 by Marleen Rivera Mai, RN HR:90
--- NOTE | 2018-12-03 22:45 | NUR ---
No adverse reaction after 15 minutes of blood transfusion. Temp: 99.2 F, BP: 92/56, HR: 90. Will continue to monitor pt.
[2018-12-04] VITALS: BP 122/54
[2018-12-04] MEDS: Morphine Sulfate 4mg/ml Inj (IV USE ONLY) IVP PRN ×4 (00:09→17:12)
--- NOTE | 2018-12-04 03:00 | NUR ---
NURSE NOTES: Picked up second unit of PRBC from blood bank at 0245. Completed two RNs verification prior to transfusion. Began second unit PRBC transfusion at 0300. Vital signs stable: Temp: 98.8 F, HR: 87, BP 127/59. Will monitor pt and recheck vital signs in 15 minutes.
--- NOTE | 2018-12-04 03:15 | NUR ---
NURSE NOTES: Rechecked VS 15 minutes after transfusion. VS are stable. Temp: 99.1, HR: 86 bpm, BP: 120/59. No adverse reaction noted. Will continue to monitor pt.
[2018-12-04 04:00] VITALS: BP 120/59
--- NOTE | 2018-12-04 05:15 | NUR ---
NURSE NOTES: Completed PRBC transfusion at 0510. No adverse reaction noted. VS are stable. Temp: 98.6 F, HR: 86 bpm, BP: 125/62. Will continue to monitor pt.
--- NOTE | 2018-12-04 07:28 | Consultation ---
History of Present Illness General Date patient seen: Dec 04, 2018 Time patient seen: 07:20 Chief Complaint: LLE Ulcer Present Illness HPI Asked to evaluate this patient with a chronic non healing ulcer of her LLE. She has had the ulcer for nine months. The wound initially started out very small but no h/o trauma. She developed bleeding from the wound yesterday and became light headed. [place] [facility] [place] 5.9. She has undergone 2u prbc transfusion. She has had ulcers in her left lower leg before. She had surgical debridement a month ago. She is being treated by an outside MD and a visiting nurse but unclear what the treatments are. She is not diabetic. Allergies: Coded Allergies: ASPIRIN (Unverified Allergy, Unknown, 01/13/14) [place] (Unverified Allergy, Unknown, 01/13/14) PENICILLINS (Unverified Allergy, Unknown, 01/13/14) SULFA (SULFONAMIDE ANTIBIOTICS) (Unverified Allergy, Unknown, 01/13/14) Medication History Scheduled Albuterol Sulfate* (Proair Hfa*), 1 PUFF INH Q12HR, (Reported) Carvedilol* (Carvedilol*), 12.5 MG ORAL EVERY 12 HOURS, (Reported) Diclofenac Sod* (Voltaren*), 75 MG ORAL THREE TIMES A DAY, (Reported) Fluoxetine Hcl* (Fluoxetine Hcl*), 40 BID, (Reported) Furosemide* (Lasix*), 40 MG ORAL DAILY, (Reported) Gabapentin* (Gabapentin*), 300 MG ORAL THREE TIMES A DAY, (Reported) Hydroxyzine HCl (Hydroxyzine HCl), 25 MG ORAL BEDTIME, (Reported) Levothyroxine Sodium* (Levothyroxine Sodium*), 100 MCG PO DAILY, (Reported) Lisinopril (Lisinopril*), 40 MG ORAL DAILY, (Reported) Neomycin/Polymyxin B Sulf/Hc (Ycvvmwil-Tqvsiaybe-Nm Ear Soln), 10 ML OT BID, ( Reported) Norethindrone Acetate (Norethindrone Acetate), 5 MG PO BID, (Reported) Pantoprazole* (Protonix*), 40 MG ORAL DAILY, (Reported) [Liness], 145 MCG PO DAILY, (Reported) Scheduled PRN Hydrocodone Bit/Acetaminophen 5-325* ([place] 5-325*), 1 TAB ORAL Q6H PRN for For Pain Miscellaneous Medications Budesonide/Formoterol Fumarate (Symbicort 160-4.5 Mcg Inhaler), (Reported) Hydrocodone Bit/Acetaminophen 10-325* (Hydrocodon-Acetaminophn 10-325*), 1 TAB, (Reported) Methylprednisolone (Methylprednisolone), (Reported) Patient History History Provided By: Patient, Medical Record Healthcare decision maker N Resuscitation status Full Code Advanced Directive on File Review of Systems Constitutional: Reports: weakness Skin: Reports: see HPI Physical Exam General Appearance: no apparent distress, alert Lines, tubes and drains: peripheral Cardiovascular/Chest: normal peripheral pulses Skin Exam: other - Large ulcer on distal lateral LLEwith extension posteriorly. Granular base. No active bleeding visible. No erythema or warmth in periskin. Musculoskeletal: normal muscle bulk Last 24 Hour Vital Signs Date Time Temp Pulse Resp B/P (MAP) Pulse Ox O2 Delivery O2 Flow Rate FiO2 12/04/18 04:00 89 12/04/18 04:00 99.1 86 18 120/59 (79) 95 12/04/18 00:00 86 12/04/18 00:00 98.5 88 18 122/54 (76) 94 12/03/18 23:57 86 20 Room Air 21 12/03/18 21:00 Room Air 12/03/18 21:00 92 105/58 12/03/18 20:00 98.0 92 20 113/50 (71) 95 12/03/18 20:00 91 12/03/18 16:00 98.9 88 18 90/50 (63) 97 12/03/18 16:00 87 12/03/18 12:00 93 12/03/18 12:00 98.6 79 20 109/60 (76) 12/03/18 09:00 94/42 12/03/18 09:00 Room Air 12/03/18 08:57 85 94/42 12/03/18 08:00 87 12/03/18 08:00 98.4 87 20 94/50 (65) 100 12/03/18 07:56 92 14 Room Air Intake and Output 12/03/18 12/04/18 19:00 07:00 Intake Total 240 ml Output Total 150 ml 300 ml Balance 90 ml -300 ml Intake Oral 240 ml Output Urine Total 150 ml 300 ml # Voids 2 Height (Feet): 5 Height (Inches): 4.50 Weight (Pounds): 287 Medications Current Medications Medications (Trade) Dose Ordered Sig/Rogerio Route PRN Reason Start Time Stop Time Status Last Admin Dose Admin Acetaminophen/ Hydrocodone Bitart ([place] 5/325) 1 tab Q6H PRN ORAL Moderate Pain (Pain Scale 4-6) 12/02/18 21:45 12/09/18 21:44 12/02/18 22:03 Albuterol/ Ipratropium (Albuterol/ Ipratropium) 3 ml Q4H PRN HHN Shortness of Breath 12/02/18 22:15 12/07/18 22:14 Carvedilol (Coreg) 12.5 mg EVERY 12 HOURS ORAL 12/03/18 09:00 01/02/19 08:59 Dextrose (Dextrose 50%) 25 ml Q30M PRN IV Hypoglycemia 12/02/18 22:15 01/01/19 22:14 Dextrose (Dextrose 50%) 50 ml Q30M PRN IV Hypoglycemia 12/02/18 22:15 01/01/19 22:14 Fluoxetine HCl (PROzac) 10 mg BID ORAL 12/03/18 09:00 01/02/19 08:59 12/03/18 17:03 Gabapentin (Neurontin) 300 mg THREE TIMES A DAY ORAL 12/03/18 09:00 01/02/19 08:59 12/03/18 17:03 Levothyroxine Sodium (Synthroid) 100 mcg Q24H ORAL 12/04/18 06:30 01/03/19 06:29 12/04/18 06:03 Lisinopril (Prinivil) 40 mg DAILY ORAL 12/03/18 09:00 01/02/19 08:59 Morphine Sulfate (Morphine Sulfate) 4 mg Q4H PRN IVP For Pain 12/02/18 23:15 12/09/18 23:14 12/04/18 04:17 Zolpidem Tartrate (Ambien) 5 mg HSPRN PRN ORAL Insomnia 12/02/18 23:15 12/09/18 23:14 Assessment/Plan Status: stable Assessment: Patient with a large chronic venous stasis ulcer. Need to do vascular assessment. Will order arterial and venous doppler (for w/u for endo vein ablation). Need to treat her anemia. No need for debridement at this time and any debridement will likely need to be done in OR due to her pain. Once her anemia is corrected she can be discharged and f/u with me at the outpatient wound center. Thank you Jermaine Singh MD Dec 04, 2018 07:28
--- NOTE | 2018-12-04 07:30 | NUR ---
NURSE NOTES: Received patient from Christi RN in bed, Dr Singh at bedside to evaluate the LLE wound, pictures taken and uploaded, wound order input by MD. Wound dressing done as per MD order, IV on R hand 20G SL, intact and patent. Patient is resting in bed. Will continue with the plan of care.
[2018-12-04 08:00] VITALS: BP 108/51
--- NOTE | 2018-12-04 08:38 | NUR ---
HAND-OFF: Report given to WILFREDO Reed.
[2018-12-04] MEDS: FLUoxetine 10mg cap ORAL SCH ×2 (08:40→17:11)
[2018-12-04] MEDS: Lisinopril 20mg tab ORAL SCH (08:41)
[2018-12-04] MEDS: Carvedilol 12.5mg tab ORAL SCH ×2 (08:41→21:00)
[2018-12-04 10:02] LABS: ANION GAP 5 mmol/L (5-15); BLOOD UREA NITROGEN 15 mg/dL (7-18); CALCIUM 8.3 MG/DL (8.5-10.1); CARBON DIOXIDE 28 MMOL/L (21-32); CHLORIDE 106 MMOL/L (98-107); CREATININE 0.7 MG/DL (0.55-1.30); SODIUM 139 MMOL/L (136-145)
[2018-12-04 10:12] LABS: HEMATOCRIT 21.7 % (37.0-47.0); MEAN CORPUSCULAR VOLUME 79 FL (80-99); PLATELET COUNT 222 K/UL (150-450); RED BLOOD COUNT 2.74 M/UL (4.20-5.40); RED CELL DISTRIBUTION WIDTH 17.8 % (11.6-14.8); WHITE BLOOD COUNT 7.8 K/UL (4.8-10.8)
[2018-12-04 10:20] LABS: HEMOGLOBIN 6.7 G/DL (12.0-16.0)
--- NOTE | 2018-12-04 10:22 | NUR ---
NURSE NOTES: Paige's from Lab called to report Hemoglobin of 6.7. Will notify MD and continue to monitor.
--- NOTE | 2018-12-04 10:44 | NUR ---
CASE MANAGEMENT:REVIEW 12/04/18 SI: ACUTE HEMORRHAGE. SEVERE ANEMIA 99.1 86 18 120/59 95% ON RA IS: synthroid po q24 prozac po bid neurontin po tid coreg po q12 lisinopril po qd iv morphine q4hrs prn : telemetry PLAN: MONITOR CBC ~ LABS PENDING
--- NOTE | 2018-12-04 10:55 | Pulmonology Progress Note ---
Assessment/Plan Problems: (1) Acute hemorrhage (2) Severe anemia (3) Chronic cutaneous venous stasis ulcer (4) HTN (hypertension) (5) Morbid obesity with body mass index (BMI) greater than or equal to 50 Assessment/Plan got 2 units of prbc last night Plastic surgery consult appreciated monitor BP transfuse again still feeling weak. DVT prophylaxis symptomatic treatment. Subjective ROS Limited/Unobtainable: No Constitutional: Reports: no symptoms HEENT: Repors: no symptoms Allergies: Coded Allergies: ASPIRIN (Unverified Allergy, Unknown, 01/13/14) [place] (Unverified Allergy, Unknown, 01/13/14) PENICILLINS (Unverified Allergy, Unknown, 01/13/14) SULFA (SULFONAMIDE ANTIBIOTICS) (Unverified Allergy, Unknown, 01/13/14) Objective Last 24 Hour Vital Signs Date Time Temp Pulse Resp B/P (MAP) Pulse Ox O2 Delivery O2 Flow Rate FiO2 12/04/18 09:00 Room Air 12/04/18 08:41 108/51 12/04/18 08:41 86 108/51 12/04/18 08:19 82 20 Room Air 21 12/04/18 08:00 81 12/04/18 08:00 98.1 81 20 108/51 (70) 99 12/04/18 04:00 89 12/04/18 04:00 99.1 86 18 120/59 (79) 95 12/04/18 00:00 86 12/04/18 00:00 98.5 88 18 122/54 (76) 94 12/03/18 23:57 86 20 Room Air 21 12/03/18 21:00 Room Air 12/03/18 21:00 92 105/58 12/03/18 20:00 98.0 92 20 113/50 (71) 95 12/03/18 20:00 91 12/03/18 16:00 98.9 88 18 90/50 (63) 97 12/03/18 16:00 87 12/03/18 12:00 93 12/03/18 12:00 98.6 79 20 109/60 (76) Intake and Output 12/03/18 12/04/18 19:00 07:00 Intake Total 240 ml 500 ml Output Total 150 ml 300 ml Balance 90 ml 200 ml Intake Oral 240 ml Blood Product 500 ml Output Urine Total 150 ml 300 ml # Voids 2 General Appearance: WD/WN HEENT: normocephalic Breasts: no masses Cardiovascular: normal peripheral pulses Abdomen: normal bowel sounds, soft, non tender Genitourinary: normal external genitalia Extremities: no cyanosis 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 Laboratory Tests 12/04/18 09:10: White Blood Count 7.8, Red Blood Count 2.74L, Hemoglobin 6.7*L, Hematocrit 21.7L , Mean Corpuscular Volume 79L, Mean Corpuscular Hemoglobin 24.4L, Mean Corpuscular Hemoglobin Concent 30.8L, Red Cell Distribution Width 17.8H, Platelet Count 222, Mean Platelet Volume 5.3L, Neutrophils (%) (Auto) , Lymphocytes (%) (Auto) , Monocytes (%) (Auto) , Eosinophils (%) (Auto) , Basophils (%) (Auto) , Differential Total Cells Counted 100, Neutrophils % ( Manual) 63, Lymphocytes % (Manual) 30, Monocytes % (Manual) 7, Eosinophils % ( Manual) 0, Basophils % (Manual) 0, Band Neutrophils 0, Platelet Estimate Adequate, Platelet Morphology Normal, Hypochromasia 1+, Sodium Level 139, Potassium Level 4.0, Chloride Level 106, Carbon Dioxide Level 28, Anion Gap 5, Blood Urea Nitrogen 15, Creatinine 0.7, Estimat Glomerular Filtration Rate > 60 , Glucose Level 109H, Calcium Level 8.3L, Troponin I 0.005 Current Medications Medications (Trade) Dose Ordered Sig/Rogerio Route PRN Reason Start Time Stop Time Status Last Admin Dose Admin Acetaminophen/ Hydrocodone Bitart ([place] 5/325) 1 tab Q6H PRN ORAL Moderate Pain (Pain Scale 4-6) 12/02/18 21:45 12/09/18 21:44 12/02/18 22:03 Albuterol/ Ipratropium (Albuterol/ Ipratropium) 3 ml Q4H PRN HHN Shortness of Breath 12/02/18 22:15 12/07/18 22:14 Carvedilol (Coreg) 12.5 mg EVERY 12 HOURS ORAL 12/03/18 09:00 01/02/19 08:59 Dextrose (Dextrose 50%) 25 ml Q30M PRN IV Hypoglycemia 12/02/18 22:15 01/01/19 22:14 Dextrose (Dextrose 50%) 50 ml Q30M PRN IV Hypoglycemia 12/02/18 22:15 01/01/19 22:14 Fluoxetine HCl (PROzac) 10 mg BID ORAL 12/03/18 09:00 01/02/19 08:59 12/04/18 08:40 Gabapentin (Neurontin) 300 mg THREE TIMES A DAY ORAL 12/03/18 09:00 01/02/19 08:59 12/04/18 08:40 Levothyroxine Sodium (Synthroid) 100 mcg Q24H ORAL 12/04/18 06:30 01/03/19 06:29 12/04/18 06:03 Lisinopril (Prinivil) 40 mg DAILY ORAL 12/03/18 09:00 01/02/19 08:59 Morphine Sulfate (Morphine Sulfate) 4 mg Q4H PRN IVP For Pain 12/02/18 23:15 12/09/18 23:14 12/04/18 08:39 Zolpidem Tartrate (Ambien) 5 mg HSPRN PRN ORAL Insomnia 12/02/18 23:15 12/09/18 23:14 Myrna Mckeon MD Dec 04, 2018 10:55
--- NOTE | 2018-12-04 11:00 | NUR ---
NURSE NOTES: No new order from Dr. Sanchez regards to Hgb 6.7 reported by by Lab (Kate). Dr. Mckeon made aware of the lab result. New labs ordered. Will continue to monitor.
--- NOTE | 2018-12-04 11:22 | NUR ---
RD ASSESSMENT & RECOMMENDATIONS SEE CARE ACTIVITY FOR COMPLETE ASSESSMENT DAILY ESTIMATED NEEDS: Needs based on Wound, morbidly obese 73.5kg adj 20-25 kcals/kg 8542-0483 total kcals 1.25-1.5 g protein/kg 92-110 g total protein 25-30 mL/kg 7043-6471 total fluid mLs NUTRITION DIAGNOSIS: 1) Increased protein needs r/t wound healing as evidenced by pt w/ Chronic LLE venous stasis wound, w/ recent surgical debridement. 2) Obesity etiology unknown (lifestyle? nutrition knowledge deficit?) as evidenced by pt w/ BMI 49, p is 239% of [place] Body Weight. PO DIET RECOMMENDATIONS: Cardiac diet ADDITIONAL RECOMMENDATIONS: 1) Obtain a calibrated bed scale wt as able 2) Wound care: SALO BID + MVI x1 + Vit C 250mg BID 3) High protein snacks in b/w meals
[2018-12-04 12:00] VITALS: BP 99/65
[2018-12-04 16:00] VITALS: BP 92/54
--- NOTE | 2018-12-04 18:40 | Internal Med Progress Note ---
Subjective Date of Service: Dec 04, 2018 Physician Name Austin Botello Attending Physician Lan Sanchez MD Current Medications Medications (Trade) Dose Ordered Sig/Rogerio Route PRN Reason Start Time Stop Time Status Last Admin Dose Admin Acetaminophen/ Hydrocodone Bitart ([place] 5/325) 1 tab Q6H PRN ORAL Moderate Pain (Pain Scale 4-6) 12/02/18 21:45 12/09/18 21:44 12/02/18 22:03 Albuterol/ Ipratropium (Albuterol/ Ipratropium) 3 ml Q4H PRN HHN Shortness of Breath 12/02/18 22:15 12/07/18 22:14 Carvedilol (Coreg) 12.5 mg EVERY 12 HOURS ORAL 12/03/18 09:00 01/02/19 08:59 Dextrose (Dextrose 50%) 25 ml Q30M PRN IV Hypoglycemia 12/02/18 22:15 01/01/19 22:14 Dextrose (Dextrose 50%) 50 ml Q30M PRN IV Hypoglycemia 12/02/18 22:15 01/01/19 22:14 Fluoxetine HCl (PROzac) 10 mg BID ORAL 12/03/18 09:00 01/02/19 08:59 12/04/18 17:11 Gabapentin (Neurontin) 300 mg THREE TIMES A DAY ORAL 12/03/18 09:00 01/02/19 08:59 12/04/18 17:11 Levothyroxine Sodium (Synthroid) 100 mcg Q24H ORAL 12/04/18 06:30 01/03/19 06:29 12/04/18 06:03 Lisinopril (Prinivil) 40 mg DAILY ORAL 12/03/18 09:00 01/02/19 08:59 Morphine Sulfate (Morphine Sulfate) 4 mg Q4H PRN IVP For Pain 12/02/18 23:15 12/09/18 23:14 12/04/18 17:12 Zolpidem Tartrate (Ambien) 5 mg HSPRN PRN ORAL Insomnia 12/02/18 23:15 12/09/18 23:14 Allergies: Coded Allergies: ASPIRIN (Unverified Allergy, Unknown, 01/13/14) [place] (Unverified Allergy, Unknown, 01/13/14) PENICILLINS (Unverified Allergy, Unknown, 01/13/14) SULFA (SULFONAMIDE ANTIBIOTICS) (Unverified Allergy, Unknown, 01/13/14) ROS Limited/Unobtainable: No Constitutional: Reports: no symptoms HEENT: Reports: no symptoms Cardiovascular: Reports: no symptoms Respiratory: Reports: no symptoms Gastrointestinal/Abdominal: Reports: no symptoms Genitourinary: Reports: no symptoms Neurologic/Psychiatric: Reports: no symptoms Subjective 53 YO F admitted with chronic venous stasis ulcer hemorrhage. Cover for Int Juan F -Dr Sanchez Objective Last Vital Signs Date Time Temp Pulse Resp B/P (MAP) Pulse Ox O2 Delivery O2 Flow Rate FiO2 12/04/18 16:00 99.0 85 20 92/54 (67) 94 12/04/18 09:00 Room Air 12/04/18 08:19 21 Laboratory Tests Test 12/04/18 09:10 White Blood Count 7.8 K/UL (4.8-10.8) Red Blood Count 2.74 M/UL (4.20-5.40) L Hemoglobin 6.7 G/DL (12.0-16.0) *L Hematocrit 21.7 % (37.0-47.0) L Mean Corpuscular Volume 79 FL (80-99) L Mean Corpuscular Hemoglobin 24.4 PG (27.0-31.0) L Mean Corpuscular Hemoglobin Concent 30.8 G/DL (32.0-36.0) L Red Cell Distribution Width 17.8 % (11.6-14.8) H Platelet Count 222 K/UL (150-450) Mean Platelet Volume 5.3 FL (6.5-10.1) L Neutrophils (%) (Auto) % (45.0-75.0) Lymphocytes (%) (Auto) % (20.0-45.0) Monocytes (%) (Auto) % (1.0-10.0) Eosinophils (%) (Auto) % (0.0-3.0) Basophils (%) (Auto) % (0.0-2.0) Differential Total Cells Counted 100 Neutrophils % (Manual) 63 % (45-75) Lymphocytes % (Manual) 30 % (20-45) Monocytes % (Manual) 7 % (1-10) Eosinophils % (Manual) 0 % (0-3) Basophils % (Manual) 0 % (0-2) Band Neutrophils 0 % (0-8) Platelet Estimate Adequate Platelet Morphology Normal Hypochromasia 1+ Sodium Level 139 MMOL/L (136-145) Potassium Level 4.0 MMOL/L (3.5-5.1) Chloride Level 106 MMOL/L (98-107) Carbon Dioxide Level 28 MMOL/L (21-32) Anion Gap 5 mmol/L (5-15) Blood Urea Nitrogen 15 mg/dL (7-18) Creatinine 0.7 MG/DL (0.55-1.30) Estimat Glomerular Filtration Rate > 60 mL/min (>60) Glucose Level 109 MG/DL (74-106) H Calcium Level 8.3 MG/DL (8.5-10.1) L Troponin I 0.005 ng/mL (0.000-0.056) Intake and Output 12/03/18 12/04/18 18:59 06:59 Intake Total 240 ml 500 ml Output Total 150 ml 300 ml Balance 90 ml 200 ml Intake Oral 240 ml Blood Product 500 ml Output Urine Total 150 ml 300 ml # Voids 2 Objective PHYSICAL EXAMINATION: GENERAL: The patient is a well-developed and well-nourished obese female, in no apparent distress. HEENT: Eyes, pupils are equal and responsive to light and accommodation. Extraocular movements are intact. NECK: Supple without lymphadenopathy. CHEST: Lungs are clear to auscultation bilaterally without wheezes or rales. CARDIOVASCULAR: Regular rhythm and rate. S1 and S2 are normal without murmurs, rubs, or gallops. ABDOMEN: Soft, nontender, and nondistended. Positive bowel sounds. No evidence of hepatosplenomegaly. Currently, no rebound or guarding noted. EXTREMITIES: Presence of 2 ulcers, which are more or less confluent on the left calf. Otherwise, without clubbing, cyanosis, or edema. RECTAL/GENITAL: Refused. NEUROLOGIC: Cranial nerves II through XII are grossly intact without focal deficits. Motor strength is 5/5 bilaterally. Deep tendon reflexes are 2+ plantar. Assessment/Plan Assessment/Plan ASSESSMENT: This is a 53-year-old female. 1. Chronic venous stasis ulcer of left calf. 2. Anemia secondary to blood loss. 3. Hypertension. 4. Hypothyroidism. 5. Gastroesophageal reflux disease. 6. Osteoarthritis. 7. Fibromyalgia. TREATMENT: 1. Anemia of acute blood loss. The patient has received 2 units of packed RBCs total. Anemia is probably secondary to blood loss as above. 2. Uncontrolled hypertension. The patient is currently hypotensive secondary to blood loss. 3. Ischemic ulcer left calf. A Plastic Surgery consultation is obtained with Dr. Sinha. 4. Hypothyroidism. Continue Synthroid as above. 5. Gastroesophageal reflux disease. 6. Osteoarthritis. 7. Fibromyalgia. Austin Botello MD Dec 04, 2018 18:40
--- NOTE | 2018-12-04 19:19 | NUR ---
NURSE NOTES: BESIDE REPORT RECEIVED FROM WILFREDO LAMBERT. PT IS X4, ABLE TO MAKE NEEDS KNOWN. WEB METHODS DEVELOPER SHOWING NSR. SATING WELL ON RA, NO S/S OF DISTRESS NOTED. PUREWICK IS ON AND DRAINING. LLE VASCULAR WOUND RECEIVED IN REPORT, UNABLE TO VISUALIZE D/T DRESSING DONE BY MD, WILL CHANGE PRN. RH 20, ASYMPTOMATIC. HGB 6.7, HCT 21.7; RECEIVED 2 UNITS OF PRBCS, YESTERDAY, MD AWARE, NO NEW ORDERS. VENOUS DUPLEX PENDING, UNABLE TO TOLERATE LLE TODAY. BED IS LOCKED IN LOWEST POSITION, SR X3, CALL DONOHUE W/ IN REACH, BED ALARM ON. WILL CONTINUE TO MONITOR AND FOLLOW W/ PLAN OF CARE.
--- NOTE | 2018-12-04 19:20 | NUR ---
HAND-OFF: Report given to Danna VILLALOBOS.Endorsed plan of care. Patient is in stable condition.
[2018-12-04 20:00] VITALS: BP 127/90
[2018-12-04] MEDS: HYDROcodone/Acetamin 5/325 tab ORAL PRN (21:17)
--- NOTE | 2018-12-04 23:28 | Diagnostic Imaging Report ---
APPROVED REPORT CPT Code: 90065 Symptoms Non-healing Ulcer : Left RIGHT LEG: Common femoral artery waveform analysis is within normal limits at rest. Color duplex sonography reveals patency of the superficial femoral, popliteal and tibial arteries. There is no evidence of stenosis or occlusion within these segments. Doppler tibial artery waveform analysis is within normal limits. There is no evidence of significant arterial occlusive disease. LEFT LEG: Could not access calf and ankle areas due to pain and open wound bandage. Common femoral artery waveform analysis is within normal limits at rest. Color duplex sonography reveals patency of the superficial femoral, popliteal and proximal tibial arteries. There is no evidence of stenosis or occlusion within these segments. Doppler proximal tibial artery waveform analysis is within normal limits. There is no evidence of significant arterial occlusive disease.
[2018-12-05] VITALS: BP 114/63
[2018-12-05] MEDS: Morphine Sulfate 4mg/ml Inj (IV USE ONLY) IVP PRN ×3 (00:34→12:56)
[2018-12-05 04:00] VITALS: BP 101/57
--- NOTE | 2018-12-05 07:00 | NUR ---
HAND-OFF: Report given to WILFREDO SLOAN.
--- NOTE | 2018-12-05 07:04 | NUR ---
NURSE NOTES: Received report from Danna VILLALOBOS. Pt AOX4 and able to make needs known. No c/o pain. No signs of distress noted. IV in R hand with 20G SL patent and intact. Bed in lowest position and locked. Bilateral feet floated with pillows. Puree wick intact and working. LLE wound elevated and covered with dressing intact and no drainage leaked. Will continue to plan of care.
[2018-12-05 07:14] LABS: HEMATOCRIT 22.4 % (37.0-47.0); MEAN CORPUSCULAR VOLUME 79 FL (80-99); PLATELET COUNT 226 K/UL (150-450); RED BLOOD COUNT 2.84 M/UL (4.20-5.40); RED CELL DISTRIBUTION WIDTH 17.7 % (11.6-14.8); WHITE BLOOD COUNT 7.1 K/UL (4.8-10.8)
[2018-12-05 07:26] LABS: ALANINE AMINOTRANSFERASE 11 U/L (12-78); ALBUMIN 1.9 G/DL (3.4-5.0); ALBUMIN/GLOBULIN RATIO 0.3 (1.0-2.7); ALKALINE PHOSPHATASE 63 U/L (46-116); ANION GAP 5 mmol/L (5-15); ASPARTATE AMINO TRANSFERASE 15 U/L (15-37); BILIRUBIN,TOTAL 0.2 MG/DL (0.2-1.0); BLOOD UREA NITROGEN 9 mg/dL (7-18); CALCIUM 8.5 MG/DL (8.5-10.1); CARBON DIOXIDE 29 MMOL/L (21-32); CHLORIDE 105 MMOL/L (98-107); CREATININE 0.6 MG/DL (0.55-1.30); PHOSPHORUS 3.9 MG/DL (2.5-4.9); POTASSIUM 3.7 MMOL/L (3.5-5.1); SODIUM 139 MMOL/L (136-145)
[2018-12-05 07:50] LABS: INR 1.1 (0.9-1.1)
[2018-12-05 08:00] VITALS: BP 109/71
[2018-12-05] MEDS ORDERED: Milk of Magnesia 30ml Ud ORAL PRN (08:30)
[2018-12-05] MEDS: Carvedilol 12.5mg tab ORAL SCH (08:33)
[2018-12-05] MEDS: FLUoxetine 10mg cap ORAL SCH (08:34)
[2018-12-05] MEDS: Lisinopril 20mg tab ORAL SCH (08:34)
--- NOTE | 2018-12-05 09:30 | NUR ---
PT EVALUATION NOTE Patient seen for initial evaluation, see complete evaluation for details. Patient presents with generalized weakness and impaired ability to perform mobility tasks. Patient will benefit from skilled inpatient PT intervention to address strength, balance, safety and functional mobility. Anticipate discharge home once medically cleared by MD, recommend home PT. No DME needs anticipated at this time, patient appears to have necessary DME at home. Addendum: 12/05/18 at 1115 by MARCUS GONZALEZ PT Amended: Links added.
--- NOTE | 2018-12-05 11:51 | Pulmonology Progress Note ---
Assessment/Plan Problems: (1) Acute hemorrhage (2) Severe anemia (3) Chronic cutaneous venous stasis ulcer (4) HTN (hypertension) (5) Morbid obesity with body mass index (BMI) greater than or equal to 50 Assessment/Plan got 2 units of prbc so far Plastic surgery consult appreciated monitor BP, controlled hem is 7 now, difficult to find matched blood for her still feeling weak. DVT prophylaxis symptomatic treatment. dc home with HH. after venofer iv is done Subjective ROS Limited/Unobtainable: No Constitutional: Reports: no symptoms HEENT: Repors: no symptoms Respiratory: Reports: no symptoms Allergies: Coded Allergies: ASPIRIN (Unverified Allergy, Unknown, 01/13/14) [place] (Unverified Allergy, Unknown, 01/13/14) PENICILLINS (Unverified Allergy, Unknown, 01/13/14) SULFA (SULFONAMIDE ANTIBIOTICS) (Unverified Allergy, Unknown, 01/13/14) Objective Last 24 Hour Vital Signs Date Time Temp Pulse Resp B/P (MAP) Pulse Ox O2 Delivery O2 Flow Rate FiO2 12/05/18 09:00 Room Air 12/05/18 08:34 109/71 12/05/18 08:33 84 109/71 12/05/18 08:28 84 18 Room Air 21 12/05/18 08:00 89 12/05/18 08:00 97.4 83 20 109/71 (84) 97 12/05/18 04:00 98.4 80 20 101/57 (72) 96 12/05/18 04:00 80 12/05/18 01:04 99.0 12/05/18 00:00 98.7 83 22 114/63 (80) 98 12/05/18 00:00 84 12/04/18 21:47 99.0 12/04/18 21:00 87 109/57 12/04/18 21:00 Room Air 12/04/18 20:00 84 12/04/18 20:00 99.0 87 20 127/90 (102) 98 12/04/18 19:40 85 18 Room Air 21 12/04/18 16:00 99.0 85 20 92/54 (67) 94 12/04/18 16:00 85 12/04/18 12:00 98.5 84 20 99/65 (76) 96 12/04/18 12:00 82 Intake and Output 4/17/19 4/18/19 19:00 07:00 Intake Total 240 ml Output Total 1400 ml Balance -1160 ml Intake Oral 240 ml Output Urine Total 1400 ml # Voids 2 General Appearance: WD/WN HEENT: normocephalic, atraumatic Respiratory/Chest: chest wall non-tender, lungs clear Breasts: no masses Cardiovascular: normal peripheral pulses Abdomen: normal bowel sounds, soft, non tender Laboratory Tests 12/05/18 05:50: White Blood Count 7.1, Red Blood Count 2.84L, Hemoglobin 7.0L, Hematocrit 22.4L , Mean Corpuscular Volume 79L, Mean Corpuscular Hemoglobin 24.8L, Mean Corpuscular Hemoglobin Concent 31.3L, Red Cell Distribution Width 17.7H, Platelet Count 226, Mean Platelet Volume 5.0L, Neutrophils (%) (Auto) , Lymphocytes (%) (Auto) , Monocytes (%) (Auto) , Eosinophils (%) (Auto) , Basophils (%) (Auto) , Differential Total Cells Counted 100, Neutrophils % ( Manual) 53, Lymphocytes % (Manual) 34, Monocytes % (Manual) 7, Eosinophils % ( Manual) 5H, Basophils % (Manual) 1, Band Neutrophils 0, Platelet Estimate Adequate, Platelet Morphology Normal, Hypochromasia 1+, Anisocytosis 1+, Prothrombin Time 11.4, Prothromb Time International Ratio 1.1, Activated Partial Thromboplast Time 25, Sodium Level 139, Potassium Level 3.7, Chloride Level 105, Carbon Dioxide Level 29, Anion Gap 5, Blood Urea Nitrogen 9, Creatinine 0.6, Estimat Glomerular Filtration Rate > 60, Glucose Level 81, Calcium Level 8.5, Phosphorus Level 3.9, Magnesium Level 1.8, Total Bilirubin 0.2, Aspartate Amino Transf (AST/SGOT) 15, Alanine Aminotransferase (ALT/SGPT) 11L, Alkaline Phosphatase 63, Troponin I 0.012, Total Protein 7.8, Albumin 1.9L , Globulin 5.9, Albumin/Globulin Ratio 0.3L Current Medications Medications (Trade) Dose Ordered Sig/Rogerio Route PRN Reason Start Time Stop Time Status Last Admin Dose Admin Acetaminophen/ Hydrocodone Bitart ([place] 5/325) 1 tab Q6H PRN ORAL Moderate Pain (Pain Scale 4-6) 12/02/18 21:45 4/22/19 21:44 12/04/18 21:17 Albuterol/ Ipratropium (Albuterol/ Ipratropium) 3 ml Q4H PRN HHN Shortness of Breath 12/02/18 22:15 12/07/18 22:14 Carvedilol (Coreg) 12.5 mg EVERY 12 HOURS ORAL 12/03/18 09:00 01/02/19 08:59 Cyanocobalamin (Vitamin B12) 1,000 mcg ONCE IM 12/05/18 14:00 12/05/18 16:00 Dextrose (Dextrose 50%) 25 ml Q30M PRN IV Hypoglycemia 12/02/18 22:15 01/01/19 22:14 Dextrose (Dextrose 50%) 50 ml Q30M PRN IV Hypoglycemia 12/02/18 22:15 01/01/19 22:14 Fluoxetine HCl (PROzac) 10 mg BID ORAL 12/03/18 09:00 01/02/19 08:59 12/05/18 08:34 Folic Acid (Folate) 1 mg DAILY ORAL 12/05/18 11:45 01/04/19 11:44 Gabapentin (Neurontin) 300 mg THREE TIMES A DAY ORAL 12/03/18 09:00 01/02/19 08:59 12/05/18 08:33 Iron Sucrose 100 mg/Sodium Chloride 60 ml @ 240 mls/hr BEDTIME IV 12/05/18 21:00 12/09/18 21:14 Levothyroxine Sodium (Synthroid) 100 mcg Q24H ORAL 12/04/18 06:30 01/03/19 06:29 12/05/18 05:33 Lisinopril (Prinivil) 40 mg DAILY ORAL 12/03/18 09:00 01/02/19 08:59 Magnesium Hydroxide (Mom) 30 ml DAILYPRN PRN ORAL Constipation 12/05/18 08:30 01/04/19 08:29 12/05/18 08:35 Morphine Sulfate (Morphine Sulfate) 4 mg Q4H PRN IVP For Pain 12/02/18 23:15 12/09/18 23:14 12/05/18 08:35 Zolpidem Tartrate (Ambien) 5 mg HSPRN PRN ORAL Insomnia 12/02/18 23:15 12/09/18 23:14 Myrna Mckeon MD Dec 05, 2018 11:50
[2018-12-05 12:00] VITALS: BP 97/61
[2018-12-05] MEDS ORDERED: Vitamin B12 1000mcg/ml Inj IM SCH (14:00)
[2018-12-05] MEDS ORDERED: Iron Sucrose 100 MG in NS 55 ML IV SCH ×2 (14:00→21:00)
[2018-12-05] MEDS: HYDROcodone/Acetamin 5/325 tab ORAL PRN (14:10)
--- NOTE | 2018-12-05 15:37 | NUR ---
DISCHARGE PLANNED PATIENT HAS BEEN REFERRED TO [facility] T: [phone] F: [phone]
[2018-12-05 16:00] VITALS: BP 104/54
--- NOTE | 2018-12-05 16:10 | Internal Med Progress Note ---
Subjective Date of Service: Dec 05, 2018 Physician Name Austin Botello Attending Physician Lan Sanchez MD Current Medications Medications (Trade) Dose Ordered Sig/Rogerio Route PRN Reason Start Time Stop Time Status Last Admin Dose Admin Acetaminophen/ Hydrocodone Bitart ([place] 5/325) 1 tab Q6H PRN ORAL Moderate Pain (Pain Scale 4-6) 12/02/18 21:45 12/09/18 21:44 12/05/18 14:10 Albuterol/ Ipratropium (Albuterol/ Ipratropium) 3 ml Q4H PRN HHN Shortness of Breath 12/02/18 22:15 12/07/18 22:14 Carvedilol (Coreg) 12.5 mg EVERY 12 HOURS ORAL 12/03/18 09:00 01/02/19 08:59 Dextrose (Dextrose 50%) 25 ml Q30M PRN IV Hypoglycemia 12/02/18 22:15 01/01/19 22:14 Dextrose (Dextrose 50%) 50 ml Q30M PRN IV Hypoglycemia 12/02/18 22:15 01/01/19 22:14 Fluoxetine HCl (PROzac) 10 mg BID ORAL 12/03/18 09:00 01/02/19 08:59 12/05/18 08:34 Folic Acid (Folate) 1 mg DAILY ORAL 12/05/18 11:45 01/04/19 11:44 12/05/18 12:56 Gabapentin (Neurontin) 300 mg THREE TIMES A DAY ORAL 12/03/18 09:00 01/02/19 08:59 12/05/18 12:56 Iron Sucrose 100 mg/Sodium Chloride 60 ml @ 240 mls/hr BEDTIME IV 12/05/18 14:00 12/09/18 21:14 12/05/18 13:18 Levothyroxine Sodium (Synthroid) 100 mcg Q24H ORAL 12/04/18 06:30 01/03/19 06:29 12/05/18 05:33 Lisinopril (Prinivil) 40 mg DAILY ORAL 12/03/18 09:00 01/02/19 08:59 Magnesium Hydroxide (Mom) 30 ml DAILYPRN PRN ORAL Constipation 12/05/18 08:30 01/04/19 08:29 12/05/18 08:35 Morphine Sulfate (Morphine Sulfate) 4 mg Q4H PRN IVP For Pain 12/02/18 23:15 12/09/18 23:14 12/05/18 12:56 Zolpidem Tartrate (Ambien) 5 mg HSPRN PRN ORAL Insomnia 12/02/18 23:15 12/09/18 23:14 Allergies: Coded Allergies: ASPIRIN (Unverified Allergy, Unknown, 01/13/14) [place] (Unverified Allergy, Unknown, 01/13/14) PENICILLINS (Unverified Allergy, Unknown, 01/13/14) SULFA (SULFONAMIDE ANTIBIOTICS) (Unverified Allergy, Unknown, 01/13/14) ROS Limited/Unobtainable: No Constitutional: Reports: no symptoms HEENT: Reports: no symptoms Cardiovascular: Reports: no symptoms Respiratory: Reports: no symptoms Gastrointestinal/Abdominal: Reports: no symptoms Genitourinary: Reports: no symptoms Neurologic/Psychiatric: Reports: no symptoms Subjective 53 YO F admitted with chronic venous stasis ulcer hemorrhage. Cover for Int Med -Dr Sanchez Objective Last Vital Signs Date Time Temp Pulse Resp B/P (MAP) Pulse Ox O2 Delivery O2 Flow Rate FiO2 12/05/18 12:00 79 12/05/18 09:00 Room Air 12/05/18 08:34 109/71 12/05/18 08:28 18 21 12/05/18 08:00 97.4 97 Laboratory Tests Test 12/05/18 05:50 White Blood Count 7.1 K/UL (4.8-10.8) Red Blood Count 2.84 M/UL (4.20-5.40) L Hemoglobin 7.0 G/DL (12.0-16.0) L Hematocrit 22.4 % (37.0-47.0) L Mean Corpuscular Volume 79 FL (80-99) L Mean Corpuscular Hemoglobin 24.8 PG (27.0-31.0) L Mean Corpuscular Hemoglobin Concent 31.3 G/DL (32.0-36.0) L Red Cell Distribution Width 17.7 % (11.6-14.8) H Platelet Count 226 K/UL (150-450) Mean Platelet Volume 5.0 FL (6.5-10.1) L Neutrophils (%) (Auto) % (45.0-75.0) Lymphocytes (%) (Auto) % (20.0-45.0) Monocytes (%) (Auto) % (1.0-10.0) Eosinophils (%) (Auto) % (0.0-3.0) Basophils (%) (Auto) % (0.0-2.0) Differential Total Cells Counted 100 Neutrophils % (Manual) 53 % (45-75) Lymphocytes % (Manual) 34 % (20-45) Monocytes % (Manual) 7 % (1-10) Eosinophils % (Manual) 5 % (0-3) H Basophils % (Manual) 1 % (0-2) Band Neutrophils 0 % (0-8) Platelet Estimate Adequate Platelet Morphology Normal Hypochromasia 1+ Anisocytosis 1+ Prothrombin Time 11.4 SEC (9.30-11.50) Prothromb Time International Ratio 1.1 (0.9-1.1) Activated Partial Thromboplast Time 25 SEC (23-33) Sodium Level 139 MMOL/L (136-145) Potassium Level 3.7 MMOL/L (3.5-5.1) Chloride Level 105 MMOL/L (98-107) Carbon Dioxide Level 29 MMOL/L (21-32) Anion Gap 5 mmol/L (5-15) Blood Urea Nitrogen 9 mg/dL (7-18) Creatinine 0.6 MG/DL (0.55-1.30) Estimat Glomerular Filtration Rate > 60 mL/min (>60) Glucose Level 81 MG/DL (74-106) Calcium Level 8.5 MG/DL (8.5-10.1) Phosphorus Level 3.9 MG/DL (2.5-4.9) Magnesium Level 1.8 MG/DL (1.8-2.4) Total Bilirubin 0.2 MG/DL (0.2-1.0) Aspartate Amino Transf (AST/SGOT) 15 U/L (15-37) Alanine Aminotransferase (ALT/SGPT) 11 U/L (12-78) L Alkaline Phosphatase 63 U/L (46-116) Troponin I 0.012 ng/mL (0.000-0.056) Total Protein 7.8 G/DL (6.4-8.2) Albumin 1.9 G/DL (3.4-5.0) L Globulin 5.9 g/dL Albumin/Globulin Ratio 0.3 (1.0-2.7) L Intake and Output 12/04/18 12/05/18 19:00 07:00 Intake Total 240 ml Output Total 1400 ml Balance -1160 ml Intake Oral 240 ml Output Urine Total 1400 ml # Voids 2 Objective PHYSICAL EXAMINATION: GENERAL: The patient is a well-developed and well-nourished obese female, in no apparent distress. HEENT: Eyes, pupils are equal and responsive to light and accommodation. Extraocular movements are intact. NECK: Supple without lymphadenopathy. CHEST: Lungs are clear to auscultation bilaterally without wheezes or rales. CARDIOVASCULAR: Regular rhythm and rate. S1 and S2 are normal without murmurs, rubs, or gallops. ABDOMEN: Soft, nontender, and nondistended. Positive bowel sounds. No evidence of hepatosplenomegaly. Currently, no rebound or guarding noted. EXTREMITIES: Presence of 2 ulcers, which are more or less confluent on the left calf. Otherwise, without clubbing, cyanosis, or edema. RECTAL/GENITAL: Refused. NEUROLOGIC: Cranial nerves II through XII are grossly intact without focal deficits. Motor strength is 5/5 bilaterally. Deep tendon reflexes are 2+ plantar. Assessment/Plan Assessment/Plan ASSESSMENT: This is a 53-year-old female. 1. Chronic venous stasis ulcer of left calf. 2. Anemia secondary to blood loss. 3. Hypertension. 4. Hypothyroidism. 5. Gastroesophageal reflux disease. 6. Osteoarthritis. 7. Fibromyalgia. TREATMENT: 1. Anemia of acute blood loss. The patient has received 2 units of packed RBCs total. Anemia is probably secondary to blood loss as above. 2. Uncontrolled hypertension. The patient is currently hypotensive secondary to blood loss. 3. Ischemic ulcer left calf. A Plastic Surgery consultation is obtained with Dr. Sinha. 4. Hypothyroidism. Continue Synthroid as above. 5. Gastroesophageal reflux disease. 6. Osteoarthritis. 7. Fibromyalgia. Austin Botello MD Dec 05, 2018 16:10
--- NOTE | 2018-12-05 17:30 | NUR ---
Discharge: Patient is being discharged from medical care to home. Awake, alert and oriented x4. After care instructions, including referral to home health were given. Patient verbalized understanding of After care instructions. All medical devices such as IV , environmental monitoring technician, and ID band were removed. Patient transferred with ambulance personnels via gurney. Pt in stable and no c/o pain. .
--- NOTE | 2018-12-06 12:12 | Discharge Summary ---
Discharge Summary Discharge Summary _ DATE OF ADMISSION: 12/02/2018 DATE OF DISCHARGE: 12/05/2018 ADMITTING MD: Dr. Lan Sanchez DISCHARGED BY: Dr. Myrna Mckeon CONSULTANTS: Dr. Myrna Singh BRIEF HOSPITAL COURSE: Patient is a 53-year-old [place] female, who presented with bleeding from the left calf ulcer. Patient has history of left calf ulcer, presumably secondary to ischemic ulcer. She stated she had undergone debridement x2 at [facility]. She was seen by the wound care nurse on 12/02/2018. After the wound care nurse left, patient began to bleed profusely. According to EMS, there was approximately 1 L of blood on the floor. She was initially taken to [facility] emergency room. The patient was transferred to [facility] for insurance purposes. The patient was admitted with anemia secondary to hemorrhage from the left calf ulcer. She has medical history significant for hypertension, GERD, osteoarthritis, fibromyalgia and major depression. Patient was a direct admit from [facility]. Blood work done here showed hemoglobin of 5.9, hematocrit 20. She was given 2 units packed RBC blood transfusion. Surgeon was consulted. According to patient, she had chronic nonhealing ulcer of the left lower extremity, status post surgical debridement a month prior. On evaluation of the wound, patient had a large ulcer on the distal lateral lower leg with extension posteriorly. There was a granular base. No active bleed visible. Arterial duplex scan showed right leg without evidence of stenosis or occlusion. Left leg showed patency of the superficial femoral, popliteal and proximal tibial arteries. Calf and ankle was not able to be assessed due to wound bandage. Echocardiogram showed EF 55-60% with mild pulmonary hypertension. Hemoglobin went up to 7. Had difficulty to find matched blood for transfusion. She was given vitamin B12, folic acid and iron. Patient was discharged home with home health. Patient was recommended to follow -up with outpatient wound care center. FINAL DIAGNOSES: Acute hemorrhage Severe anemia Anemia of acute blood loss Ischemic ulcer of left calf Hypertension Morbid obesity Hypothyroidism GERD Osteoarthritis Fibromyalgia DISPOSITION: DC home with home health. DISCHARGE MEDICATIONS: Refer to Discharge Medication List. DISCHARGE INSTRUCTIONS: Follow-up in a week. I have been assigned to complete a discharge summary on this account, I was not involved with the patient's management. Carolina Hardy NP Dec 06, 2018 12:12
== END 2018-12-05 17:30 | disposition home health service (06) | DRG 300 ==
LOC: 2E 20:05 → SDSOVERFLO 12-04 15:38 → 2E 12-04 15:39
PROC: 30233N1 Transfusion of Nonautologous Red Blood Cells into Peripheral Vein, Percutaneous Approach (ICD-10-PCS; principal; 2018-12-03)
DX: I83.022 Varicose veins of left lower extremity with ulcer of calf (principal); L97.229 Non-pressure chronic ulcer of left calf with unspecified severity; D62 Acute posthemorrhagic anemia; Z68.43 Body mass index [BMI] 50.0-59.9, adult; R58 Hemorrhage, not elsewhere classified; E66.01 Morbid (severe) obesity due to excess calories; I95.9 Hypotension, unspecified; E03.9 Hypothyroidism, unspecified; M19.90 Unspecified osteoarthritis, unspecified site; K21.9 Gastro-esophageal reflux disease without esophagitis; M79.7 Fibromyalgia; F32.9 Major depressive disorder, single episode, unspecified; J44.9 Chronic obstructive pulmonary disease, unspecified; G47.33 Obstructive sleep apnea (adult) (pediatric); I50.9 Heart failure, unspecified; I11.0 Hypertensive heart disease with heart failure; Z88.6 Allergy status to analgesic agent; Z88.0 Allergy status to penicillin; Z88.2 Allergy status to sulfonamides; Z79.899 Other long term (current) drug therapy; Z91.018 Allergy to other foods; Z90.49 Acquired absence of other specified parts of digestive tract; Z96.651 Presence of right artificial knee joint
CPT/HCPCS: 36415; 80048; 80053; 83735; 84100; 84484; 85007; 85025; 85610; 85730; 86850; 86870; 86900; 86901; 86920; 93306; 93925; 94664

== ENCOUNTER 2018-12-16 09:32 | Outpatient (RCR) | payer MEDICARE, MEDICAID | END 2018-12-17 | disposition home or self-care (01) | LOC: WCC 09:32 | DX: L97.822 Non-pressure chronic ulcer of other part of left lower leg with fat layer exposed (principal); I87.312 Chronic venous hypertension (idiopathic) with ulcer of left lower extremity; Z79.899 Other long term (current) drug therapy; Z90.49 Acquired absence of other specified parts of digestive tract; I51.9 Heart disease, unspecified; J44.9 Chronic obstructive pulmonary disease, unspecified; K21.9 Gastro-esophageal reflux disease without esophagitis; M19.90 Unspecified osteoarthritis, unspecified site; E66.01 Morbid (severe) obesity due to excess calories; E03.9 Hypothyroidism, unspecified; Z88.0 Allergy status to penicillin; Z88.2 Allergy status to sulfonamides; Z88.6 Allergy status to analgesic agent | CPT/HCPCS: 11042; 11045; 29580 ==

== ENCOUNTER 2018-12-23 10:03 | Outpatient (RCR) | payer MEDICARE, MEDICAID ==
[~2018-12-23] VITALS: Ht 165.1 cm; Wt 113.4 kg
[2018-12-27] MEDS ORDERED: Lidocaine 4% Top Soln 50ml TOPIC ONE (14:30)
== END 2019-01-17 | disposition home or self-care (01) ==
LOC: WCC 10:03
DX: L97.822 Non-pressure chronic ulcer of other part of left lower leg with fat layer exposed (principal); I87.312 Chronic venous hypertension (idiopathic) with ulcer of left lower extremity; Z88.0 Allergy status to penicillin; Z88.2 Allergy status to sulfonamides; Z88.6 Allergy status to analgesic agent; Z90.49 Acquired absence of other specified parts of digestive tract; M19.90 Unspecified osteoarthritis, unspecified site; I51.9 Heart disease, unspecified; J44.9 Chronic obstructive pulmonary disease, unspecified; K21.9 Gastro-esophageal reflux disease without esophagitis; E66.01 Morbid (severe) obesity due to excess calories; E03.9 Hypothyroidism, unspecified; Z79.899 Other long term (current) drug therapy
CPT/HCPCS: 11042; 11045; 29580; 87070; 87181; 87205

== ENCOUNTER 2019-01-20 08:47 | Outpatient (RCR) | payer MEDICARE, MEDICAID ==
[~2019-01-20] VITALS: Ht 165.1 cm; Wt 127.0 kg
[2019-01-30] MEDS ORDERED: Lidocaine 2% 20mg/ml/EPI 0.01mg/ml 20ml IV ONE (16:30)
[2019-02-10] MEDS ORDERED: Lidocaine 4% Top Soln 50ml TOPIC ONE (16:30)
== END 2019-02-16 | disposition home or self-care (01) ==
LOC: WCC 08:47
DX: L97.822 Non-pressure chronic ulcer of other part of left lower leg with fat layer exposed (principal); I87.312 Chronic venous hypertension (idiopathic) with ulcer of left lower extremity; L03.116 Cellulitis of left lower limb; Z90.49 Acquired absence of other specified parts of digestive tract; K21.9 Gastro-esophageal reflux disease without esophagitis; M19.90 Unspecified osteoarthritis, unspecified site; E66.01 Morbid (severe) obesity due to excess calories; E03.9 Hypothyroidism, unspecified; I51.9 Heart disease, unspecified; Z79.899 Other long term (current) drug therapy; Z88.2 Allergy status to sulfonamides; Z88.6 Allergy status to analgesic agent; Z88.0 Allergy status to penicillin
CPT/HCPCS: 11042; 11045; 29580

== ENCOUNTER 2019-02-17 09:10 | Outpatient (RCR) | payer MEDICARE, MEDICAID | END 2019-03-19 | disposition home or self-care (01) | LOC: WCC 09:10 | DX: L03.116 Cellulitis of left lower limb (principal); L97.822 Non-pressure chronic ulcer of other part of left lower leg with fat layer exposed; I87.312 Chronic venous hypertension (idiopathic) with ulcer of left lower extremity; Z88.0 Allergy status to penicillin; Z88.2 Allergy status to sulfonamides; Z88.6 Allergy status to analgesic agent; I87.2 Venous insufficiency (chronic) (peripheral) | CPT/HCPCS: 11042; 11045; 29580 ==

== ENCOUNTER 2019-03-24 10:01 | Outpatient (RCR) | payer MEDICARE, MEDICAID ==
[~2019-03-24] VITALS: Ht 165.1 cm; Wt 127.0 kg
[2019-04-01] MEDS ORDERED: Lidocaine 4% Top Soln 50ml TOPIC ONE (16:15)
== END 2019-04-19 | disposition home or self-care (01) ==
LOC: WCC 10:01
DX: L97.822 Non-pressure chronic ulcer of other part of left lower leg with fat layer exposed (principal); I87.312 Chronic venous hypertension (idiopathic) with ulcer of left lower extremity; L03.116 Cellulitis of left lower limb; I87.2 Venous insufficiency (chronic) (peripheral); E03.9 Hypothyroidism, unspecified; J44.9 Chronic obstructive pulmonary disease, unspecified; K21.9 Gastro-esophageal reflux disease without esophagitis; M19.90 Unspecified osteoarthritis, unspecified site; E66.01 Morbid (severe) obesity due to excess calories; I51.9 Heart disease, unspecified; Z90.49 Acquired absence of other specified parts of digestive tract; Z88.0 Allergy status to penicillin; Z88.2 Allergy status to sulfonamides; Z88.6 Allergy status to analgesic agent; Z79.899 Other long term (current) drug therapy
CPT/HCPCS: 11042; 11045; 29580

== ENCOUNTER 2019-04-28 09:48 | Outpatient (RCR) | payer MEDICARE, MEDICAID ==
[~2019-04-28] VITALS: Ht 165.1 cm; Wt 127.0 kg
[2019-05-06] MEDS ORDERED: Lidocaine 4% Top Soln 50ml TOPIC ONE (11:30)
== END 2019-05-19 | disposition home or self-care (01) ==
LOC: WCC 09:48
DX: L97.822 Non-pressure chronic ulcer of other part of left lower leg with fat layer exposed (principal); I87.312 Chronic venous hypertension (idiopathic) with ulcer of left lower extremity; L03.116 Cellulitis of left lower limb; I87.2 Venous insufficiency (chronic) (peripheral); Z88.0 Allergy status to penicillin; Z88.2 Allergy status to sulfonamides; Z88.6 Allergy status to analgesic agent; Z90.49 Acquired absence of other specified parts of digestive tract; I51.9 Heart disease, unspecified; J44.9 Chronic obstructive pulmonary disease, unspecified; K21.9 Gastro-esophageal reflux disease without esophagitis; M19.90 Unspecified osteoarthritis, unspecified site; E66.01 Morbid (severe) obesity due to excess calories; E03.9 Hypothyroidism, unspecified; Z79.899 Other long term (current) drug therapy
CPT/HCPCS: 11042; 11045; 29580; 87070; 87181; 87205

== ENCOUNTER 2019-05-05 13:57 | Outpatient (CLI) | payer MEDICARE, MEDICAID ==
[2019-05-05 14:28] LABS: BASOPHILS % (AUTO) 0.9 % (0.0-2.0); EOSINOPHILS % (AUTO) 1.7 % (0.0-3.0); HEMATOCRIT 28.3 % (37.0-47.0); HEMOGLOBIN 8.1 G/DL (12.0-16.0); LYMPHOCYTES % (AUTO) 41.3 % (20.0-45.0); MEAN CORPUSCULAR VOLUME 71 FL (80-99); MONOCYTES % (AUTO) 6.5 % (1.0-10.0); NEUTROPHILS % (AUTO) 49.6 % (45.0-75.0); PLATELET COUNT 357 K/UL (150-450); RED BLOOD COUNT 3.99 M/UL (4.20-5.40); RED CELL DISTRIBUTION WIDTH 17.3 % (11.6-14.8); WHITE BLOOD COUNT 5.6 K/UL (4.8-10.8)
[2019-05-05 14:44] LABS: ALANINE AMINOTRANSFERASE 10 U/L (12-78); ALBUMIN 2.8 G/DL (3.4-5.0); ALBUMIN/GLOBULIN RATIO 0.4 (1.0-2.7); ALKALINE PHOSPHATASE 90 U/L (46-116); ANION GAP 7 mmol/L (5-15); ASPARTATE AMINO TRANSFERASE 15 U/L (15-37); BILIRUBIN,TOTAL 0.3 MG/DL (0.2-1.0); BLOOD UREA NITROGEN 11 mg/dL (7-18); CALCIUM 8.8 MG/DL (8.5-10.1); CARBON DIOXIDE 29 MMOL/L (21-32); CHLORIDE 103 MMOL/L (98-107); CREATININE 0.7 MG/DL (0.55-1.30); SODIUM 139 MMOL/L (136-145)
--- NOTE | 2019-05-06 00:15 | Consultation ---
DATE OF CONSULTATION: 05/05/2019 INFECTIOUS DISEASE CONSULTATION CONSULTING PHYSICIAN: Emilie White M.D. REQUESTING PHYSICIAN: Jermaine Singh M.D. REASON FOR CONSULTATION: Left calf chronic nonhealing wound with infection due to Pseudomonas aeruginosa, Enterococcus faecalis, and Streptococcus species. Recommendation for antibiotics treatment in the patient with penicillin and sulfa allergy. HISTORY OF PRESENT ILLNESS: The patient is a 54-year-old female with past medical history significant for hypertension, GERD, osteoarthritis, fibromyalgia, major depression, obesity, and chronic left calf nonhealing wound was seen and evaluated at the wound care center at [facility] for nonhealing left calf wound. The patient developed her wound more than a year ago, which was a small spot as per her description. She received 2 different courses of antibiotics orally for it and it helped some how, but then the wound continued to get larger and bigger. The patient was seen and treated with debridement at [facility] on two occasions, unclear whether she received IV antibiotics after her debridement or not, but recently, she has been following with [facility]. Since her wound continued to get larger and was draining some greenish pus like material, the patient had wound swab culture early in April the result of which grew Pseudomonas aeruginosa, Enterococcus faecalis, and Streptococcus species. She was started on oral ciprofloxacin and Infectious Disease consultation was requested for antibiotic guidance and further evaluation. The patient denied any significant pain at the left leg, but she is frustrated with her leg wound, which has been getting bigger and now it is almost circumferential involving the lower aspect of her left posterior and lateral calf. No fever or chills. No local pain or tenderness. No other associated symptoms. REVIEW OF SYSTEMS: A 14-point of system reviewed were all negative apart from the one I mentioned above in my History and Physical. PAST MEDICAL HISTORY: Significant for hypertension, GERD, osteoarthritis, fibromyalgia, and major depression disorder. PAST SURGICAL HISTORY: She had surgical debridement of the left leg ulcer at [facility] x2. She had cholecystectomy, section, and right knee replacement. MEDICATIONS: She is on Claritin, albuterol, Symbicort, carvedilol, Voltaren, fluoxetine, Lasix, gabapentin, [place], hydroxyzine, Levoxyl, lisinopril, and Protonix. ALLERGIES: She is allergic to aspirin, penicillin, and sulfa. SOCIAL HISTORY: The patient is single. Lives alone. Denied using any drugs, tobacco, or alcohol. She is retired. PHYSICAL EXAMINATION: VITAL SIGNS: Temperature 98.1, respirations 16, pulse 80, and blood pressure 110/85. GENERAL: A middle-aged female, obese, lying in bed, awake, alert, oriented x3, not in acute distress. HEENT: Normocephalic and atraumatic. Pupils are reactive to light and equal. Moist oral mucosa. No exudate or thrush. NECK: Supple. No lymphadenopathy. CARDIOVASCULAR: Regular rate and rhythm. No murmur or gallop. LUNGS: Clear bilaterally. No wheezing or rhonchi. Diminished breathing sounds. ABDOMEN: Soft, obese, nontender, and nondistended. Normal bowel sounds. No hepatosplenomegaly or ascites. EXTREMITY: She had large left lower calf skin wound with mild exudate and redness at the borders. Good granulation at the base. No draining or foul smell. Wound is circumferential mainly on the posterior and lateral aspect of her left lower calf. NEUROLOGIC: Nonfocal. LABORATORY DATA: Labs not available on this visit. ASSESSMENT AND RECOMMENDATIONS: 1. Left calf chronic nonhealing wound. Suspect due to venous stasis and possible ischemic. Culture of the wound grew Pseudomonas, Enterococcus faecalis, and Streptococcus species. The patient has been taking ciprofloxacin orally, but we need to rule out underlying osteomyelitis at this stage since it has been there for a year. I recommended MRI of the left lower extremity without contrast and baseline laboratory for consideration of starting IV antibiotics for couple of weeks. To help healing process and possible graft placement in the future, she is good candidate. I explained to the patient that antibiotics will not close her wound or make it smaller, but it will help to cure the infection in the wound itself. Her wound closure depends on her blood circulation and nutritional status and other factors, which she is aware of. We will proceed with MRI this week and possible PICC line placement for long-term intravenous antibiotics treatment for couple of weeks after osteomyelitis is ruled out. Continue local wound care and dressing changes as per the wound care clinic team. 2. Venous stasis with poor circulation in the left lower extremity. The patient may need referral to Vascular Surgery for further evaluation and venous mapping. Continue local wound care and dressing change. 3. Morbid obesity. Recommend diet and exercise. Thank you for the consult. ID will continue to follow. Please feel free to call with any question. Emilie White M.D. DR: RAMON JOB#: [id number] CC:
== END 2019-05-05 15:57 | disposition home or self-care (01) ==
LOC: LAB 13:57
DX: S81.802A Unspecified open wound, left lower leg, initial encounter (principal); I87.8 Other specified disorders of veins; E66.01 Morbid (severe) obesity due to excess calories; K21.9 Gastro-esophageal reflux disease without esophagitis; I10 Essential (primary) hypertension; M19.90 Unspecified osteoarthritis, unspecified site; M79.7 Fibromyalgia; F32.9 Major depressive disorder, single episode, unspecified; Z90.49 Acquired absence of other specified parts of digestive tract; Z79.899 Other long term (current) drug therapy; Z88.6 Allergy status to analgesic agent; Z88.0 Allergy status to penicillin; Z88.2 Allergy status to sulfonamides; X58.XXXA Exposure to other specified factors, initial encounter; Y92.9 Unspecified place or not applicable
CPT/HCPCS: 36415; 80053; 85025

== ENCOUNTER 2019-05-08 10:02 | Outpatient (CLI) | payer MEDICARE, MEDICAID ==
[~2019-05-08] VITALS: Ht 160 cm; Wt 122.5 kg
[~2019-05-08 10:02] MED LIST changes: +Heparin1,000 units/500ml Premix(Conc:2 units/ml) INJ PRN; +Lidocaine 1% Plain 30 ml INJ PRN
--- NOTE | 2019-05-08 12:56 | Diagnostic Imaging Report ---
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 The left upper extremity was prepped with alcohol. All elements of maximal sterile barrier technique were followed including usage of a cap, mask, sterile gown, sterile gloves, hand hygiene and a large sterile sheet. Sonographic evaluation of the upper extremity was performed demonstrating a patent and compressible basilic vein. Access was obtained under real-time ultrasound guidance (with utilization of sterile gel and sterile probe cover) and digital image was saved and archived. An .018 wire was introduced. Needle exchanged for a 5 Armenian peel-away sheath. Measurements were obtained. A 5 Armenian dual-lumen Power PICC line catheter was cut to 50 cm and introduced over the wire. Peel-away sheath and wire were removed.Catheter was secured to the skin using 2-0 Prolene suture. Both ports aspirate and flush easily. A single fluoroscopic image shows the distal tip in the superior vena cava. Total fluoroscopic time was 13.4 seconds. Impression: Successful placement of an upper extremity PICC line catheter
--- NOTE | 2019-05-08 14:10 | Diagnostic Imaging Report ---
Indication: Left Leg pain, large healing wound distal leg Technique: MRI of the left Tibia/Fibula was imaged in a 1.5 [place] magnet. Pulse sequences obtained include multiplanar T1 fast spin-echo and STIR. . Comparison: None Findings: Bone marrow signal is normal involving the tibia and fibula. There is subcutaneous edema present nonspecific but presumably due to cellulitis. Small marker noted posteriorly to the note the area of ulceration. There is no abscess identified. Signal within the posterior compartment and anterior compartments of the leg appear slightly heterogeneous without the areas of significant edema. Some fatty atrophy of soleus noted. IMPRESSION: No evidence of acute osteomyelitis or abscess. Generalized subcutaneous edema nonspecific but presumably due to cellulitis.
== END 2019-05-08 12:02 | disposition home or self-care (01) ==
LOC: MRI 10:02
DX: M86.9 Osteomyelitis, unspecified (principal); M79.605 Pain in left leg; Z79.899 Other long term (current) drug therapy
CPT/HCPCS: 36569; 73718; 76937; J1644; J2001

== ENCOUNTER → 2019-05-13 | Day surgery (SDC) | payer MEDICARE, MEDICAID ==
[~2019-05-13] VITALS: Ht 160 cm; Wt 122.5 kg
--- NOTE | 2019-05-13 12:30 | NUR ---
RADIOLOGY NOTE: LEFT UPPER PICC PLACED.
--- NOTE | 2019-05-13 13:37 | Diagnostic Imaging Report ---
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 The left upper extremity was prepped with alcohol. All elements of maximal sterile barrier technique were followed including usage of a cap, mask, sterile gown, sterile gloves, hand hygiene and a large sterile sheet. Sonographic evaluation of the upper extremity was performed demonstrating a patent and compressible brachial vein. Access was obtained under real-time ultrasound guidance (with utilization of sterile gel and sterile probe cover) and digital image was saved and archived. An .018 wire was introduced. Needle exchanged for a 5 [place] peel-away sheath. Measurements were obtained. A 5 [place] dual-lumen Power PICC line catheter was cut to 50 cm and introduced over the wire. Peel-away sheath and wire were removed.Catheter was secured to the skin using 2-0 Prolene suture. Both ports aspirate and flush easily. A single fluoroscopic image shows the distal tip in the superior vena cava.. Fluoroscopic time 17.8 seconds. Single fluoroscopic image obtained. Impression: Successful placement of an upper extremity PICC line catheter
== END | disposition home or self-care (01) ==
LOC: RAD 11:05 → SUR 11:05
DX: Z79.899 Other long term (current) drug therapy (principal); B99.9 Unspecified infectious disease; Z88.0 Allergy status to penicillin; Z88.2 Allergy status to sulfonamides
CPT/HCPCS: 36569; 76937

== ENCOUNTER 2019-05-26 12:17 | Outpatient (RCR) | payer MEDICARE, MEDICAID ==
[~2019-05-26] VITALS: Ht 160 cm; Wt 124.7 kg
[~2019-05-26 12:17] MED LIST changes: -Heparin1,000 units/500ml Premix(Conc:2 units/ml) INJ PRN; -Lidocaine 1% Plain 30 ml INJ PRN
[2019-06-13] MEDS ORDERED: Lidocaine 4% Top Soln 50ml TOPIC ONE (17:00)
== END 2019-06-19 | disposition home or self-care (01) ==
LOC: WCC 12:17
DX: L97.822 Non-pressure chronic ulcer of other part of left lower leg with fat layer exposed (principal); I87.312 Chronic venous hypertension (idiopathic) with ulcer of left lower extremity; L03.116 Cellulitis of left lower limb; I87.2 Venous insufficiency (chronic) (peripheral); Z88.6 Allergy status to analgesic agent; Z88.0 Allergy status to penicillin
CPT/HCPCS: 11042; 11045; 29580

== ENCOUNTER 2019-06-23 09:41 | Outpatient (RCR) | payer MEDICARE, MEDICAID | END 2019-07-19 | disposition home or self-care (01) | LOC: WCC 09:41 | DX: L97.822 Non-pressure chronic ulcer of other part of left lower leg with fat layer exposed (principal); I87.312 Chronic venous hypertension (idiopathic) with ulcer of left lower extremity; L03.116 Cellulitis of left lower limb; I87.2 Venous insufficiency (chronic) (peripheral); J44.9 Chronic obstructive pulmonary disease, unspecified; K21.9 Gastro-esophageal reflux disease without esophagitis; M19.90 Unspecified osteoarthritis, unspecified site; I25.10 Atherosclerotic heart disease of native coronary artery without angina pectoris; E03.9 Hypothyroidism, unspecified; Z79.899 Other long term (current) drug therapy; Z90.49 Acquired absence of other specified parts of digestive tract; E66.01 Morbid (severe) obesity due to excess calories; Z88.0 Allergy status to penicillin; Z88.2 Allergy status to sulfonamides; Z88.6 Allergy status to analgesic agent | CPT/HCPCS: 11042; 11045; 15271; 15272; 29580; Q4106; Q4101 ==

== ENCOUNTER 2019-07-21 09:59 | Outpatient (RCR) | payer MEDICARE, MEDICAID ==
[~2019-07-21] VITALS: Ht 160 cm; Wt 124.7 kg
[2019-07-29] MEDS ORDERED: Lidocaine 4% Top Soln 50ml TOPIC ONE (10:15)
[2019-08-19] MEDS ORDERED: Lidocaine 4% Top Soln 50ml TOPIC ONE (10:00)
== END 2019-08-19 | disposition home or self-care (01) ==
LOC: WCC 09:59
DX: L97.822 Non-pressure chronic ulcer of other part of left lower leg with fat layer exposed (principal); I87.312 Chronic venous hypertension (idiopathic) with ulcer of left lower extremity; L03.116 Cellulitis of left lower limb; I87.2 Venous insufficiency (chronic) (peripheral); Z88.0 Allergy status to penicillin; Z88.2 Allergy status to sulfonamides; Z88.6 Allergy status to analgesic agent; Z90.49 Acquired absence of other specified parts of digestive tract; E03.9 Hypothyroidism, unspecified; I51.9 Heart disease, unspecified; J44.9 Chronic obstructive pulmonary disease, unspecified; K21.9 Gastro-esophageal reflux disease without esophagitis; M19.90 Unspecified osteoarthritis, unspecified site; Z79.899 Other long term (current) drug therapy
CPT/HCPCS: 11042; 11045; 15271; 15272; 29580; Q4106; Q4101

== ENCOUNTER 2019-08-25 09:55 | Outpatient (RCR) | payer MEDICARE, MEDICAID ==
[~2019-08-25] VITALS: Ht 160 cm; Wt 124.7 kg
[2019-09-10] MEDS ORDERED: Lidocaine 4% Top Soln 50ml TOPIC ONE (12:15)
== END 2019-09-19 | disposition home or self-care (01) ==
LOC: WCC 09:55
DX: L97.822 Non-pressure chronic ulcer of other part of left lower leg with fat layer exposed (principal); I87.312 Chronic venous hypertension (idiopathic) with ulcer of left lower extremity; L03.116 Cellulitis of left lower limb; I87.2 Venous insufficiency (chronic) (peripheral); Z88.0 Allergy status to penicillin; Z88.2 Allergy status to sulfonamides; J44.9 Chronic obstructive pulmonary disease, unspecified; K21.9 Gastro-esophageal reflux disease without esophagitis; E03.9 Hypothyroidism, unspecified; M19.90 Unspecified osteoarthritis, unspecified site; I51.9 Heart disease, unspecified
CPT/HCPCS: 11042; 11045; 15271; 15272; 29580; Q4106; Q4101

== ENCOUNTER 2019-09-22 08:53 | Outpatient (RCR) | payer MEDICARE, MEDICAID ==
[~2019-09-22] VITALS: Ht 160 cm; Wt 124.7 kg
[2019-10-01] MEDS ORDERED: Lidocaine 4% Top Soln 50ml TOPIC ONE (14:45)
== END 2019-10-18 | disposition home or self-care (01) ==
LOC: WCC 08:53
DX: L97.822 Non-pressure chronic ulcer of other part of left lower leg with fat layer exposed (principal); I87.312 Chronic venous hypertension (idiopathic) with ulcer of left lower extremity; L03.116 Cellulitis of left lower limb; I87.2 Venous insufficiency (chronic) (peripheral); Z90.49 Acquired absence of other specified parts of digestive tract; J44.9 Chronic obstructive pulmonary disease, unspecified; K21.9 Gastro-esophageal reflux disease without esophagitis; M19.90 Unspecified osteoarthritis, unspecified site; E03.9 Hypothyroidism, unspecified; Z79.899 Other long term (current) drug therapy; Z88.0 Allergy status to penicillin; Z88.2 Allergy status to sulfonamides; Z88.6 Allergy status to analgesic agent
CPT/HCPCS: 11042; 11045; 15271; 15272; 29580; Q4106; Q4101

== ENCOUNTER 2019-10-20 08:57 | Outpatient (RCR) | payer MEDICARE, MEDICAID ==
[~2019-10-20] VITALS: Ht 160 cm; Wt 124.7 kg
[2019-10-22] MEDS ORDERED: Lidocaine 4% Top Soln 50ml TOPIC ONE (11:30)
[2019-10-22] MEDS ORDERED: Neosporin Oint 15gm TOPIC ONE (11:30)
== END 2019-11-18 | disposition home or self-care (01) ==
LOC: WCC 08:57
DX: L97.822 Non-pressure chronic ulcer of other part of left lower leg with fat layer exposed (principal); I87.312 Chronic venous hypertension (idiopathic) with ulcer of left lower extremity; L97.511 Non-pressure chronic ulcer of other part of right foot limited to breakdown of skin; L03.116 Cellulitis of left lower limb; I87.2 Venous insufficiency (chronic) (peripheral); Z88.0 Allergy status to penicillin; Z88.2 Allergy status to sulfonamides; Z88.6 Allergy status to analgesic agent; Z90.49 Acquired absence of other specified parts of digestive tract; J44.9 Chronic obstructive pulmonary disease, unspecified; K21.9 Gastro-esophageal reflux disease without esophagitis; E03.9 Hypothyroidism, unspecified; E66.01 Morbid (severe) obesity due to excess calories; M19.90 Unspecified osteoarthritis, unspecified site; I51.9 Heart disease, unspecified; Z79.899 Other long term (current) drug therapy
CPT/HCPCS: 11042; 11045; 29580

== ENCOUNTER 2019-11-24 09:10 | Outpatient (RCR) | payer MEDICARE, MEDICAID ==
[~2019-11-24] VITALS: Ht 160 cm; Wt 124.7 kg
[2019-11-24] MEDS ORDERED: Lidocaine 4% Top Soln 50ml TOPIC ONE (17:15)
== END 2019-12-18 | disposition home or self-care (01) ==
LOC: WCC 09:10
DX: L97.822 Non-pressure chronic ulcer of other part of left lower leg with fat layer exposed (principal); I87.312 Chronic venous hypertension (idiopathic) with ulcer of left lower extremity; L97.511 Non-pressure chronic ulcer of other part of right foot limited to breakdown of skin; Z88.6 Allergy status to analgesic agent; Z88.0 Allergy status to penicillin; Z88.2 Allergy status to sulfonamides
CPT/HCPCS: 11042; 11045; 15271; 15272; 29580; Q4106; Q4101

== ENCOUNTER 2019-12-22 09:09 | Outpatient (RCR) | payer MEDICARE, MEDICAID ==
[~2019-12-22] VITALS: Ht 160 cm; Wt 124.7 kg
[2019-12-24] MEDS ORDERED: Lidocaine 4% Top Soln 50ml TOPIC ONE (10:45)
[2020-01-06] MEDS ORDERED: Lidocaine 4% Top Soln 50ml TOPIC ONE (10:15)
== END 2020-01-18 | disposition home or self-care (01) ==
LOC: WCC 09:09
DX: L97.822 Non-pressure chronic ulcer of other part of left lower leg with fat layer exposed (principal); I87.312 Chronic venous hypertension (idiopathic) with ulcer of left lower extremity; L97.511 Non-pressure chronic ulcer of other part of right foot limited to breakdown of skin; Z88.6 Allergy status to analgesic agent; Z88.0 Allergy status to penicillin; Z88.2 Allergy status to sulfonamides
CPT/HCPCS: 11042; 11045; 29580

== ENCOUNTER 2020-01-19 08:59 | Outpatient (RCR) | payer MEDICARE, MEDICAID ==
[~2020-01-19] VITALS: Ht 160 cm; Wt 109.3 kg
[2020-01-26] MEDS ORDERED: Lidocaine 4% Top Soln 50ml TOPIC ONE (17:30)
== END 2020-02-17 | disposition home or self-care (01) ==
LOC: WCC 08:59
DX: L97.822 Non-pressure chronic ulcer of other part of left lower leg with fat layer exposed (principal); I87.312 Chronic venous hypertension (idiopathic) with ulcer of left lower extremity; L97.511 Non-pressure chronic ulcer of other part of right foot limited to breakdown of skin; Z88.6 Allergy status to analgesic agent; Z88.0 Allergy status to penicillin; Z88.2 Allergy status to sulfonamides
CPT/HCPCS: 11042; 11045; 15271; 15272; 29580; Q4121

== ENCOUNTER 2020-02-19 14:41 | Outpatient (RCR) | payer MEDICARE, MEDICAID ==
[~2020-02-19] VITALS: Ht 160 cm; Wt 109.3 kg
[2020-02-24] MEDS ORDERED: Lidocaine 4% Top Soln 50ml TOPIC ONE (09:45)
== END 2020-03-19 | disposition home or self-care (01) ==
LOC: WCC 14:41
DX: L97.822 Non-pressure chronic ulcer of other part of left lower leg with fat layer exposed (principal); I87.312 Chronic venous hypertension (idiopathic) with ulcer of left lower extremity; L97.511 Non-pressure chronic ulcer of other part of right foot limited to breakdown of skin; Z88.6 Allergy status to analgesic agent; Z88.0 Allergy status to penicillin; Z88.2 Allergy status to sulfonamides; Z90.49 Acquired absence of other specified parts of digestive tract; E03.9 Hypothyroidism, unspecified; I51.9 Heart disease, unspecified; J44.9 Chronic obstructive pulmonary disease, unspecified; K21.9 Gastro-esophageal reflux disease without esophagitis; M19.90 Unspecified osteoarthritis, unspecified site; Z79.899 Other long term (current) drug therapy
CPT/HCPCS: 11042; 11043; 11045; 15271; 15272; 29580; Q4121

== ENCOUNTER 2020-03-22 11:55 | Outpatient (RCR) | payer MEDICARE, MEDICAID ==
[~2020-03-22] VITALS: Ht 160 cm; Wt 109.3 kg
[2020-04-06] MEDS ORDERED: Lidocaine 4% Top Soln 50ml TOPIC ONE (12:15)
== END 2020-04-19 | disposition home or self-care (01) ==
LOC: WCC 11:55
DX: L97.822 Non-pressure chronic ulcer of other part of left lower leg with fat layer exposed (principal); I87.312 Chronic venous hypertension (idiopathic) with ulcer of left lower extremity; L97.511 Non-pressure chronic ulcer of other part of right foot limited to breakdown of skin; Z88.6 Allergy status to analgesic agent; Z88.0 Allergy status to penicillin; Z88.2 Allergy status to sulfonamides
CPT/HCPCS: 11042; 11045; 29580

== ENCOUNTER 2020-05-03 11:32 | Outpatient (RCR) | payer MEDICARE, MEDICAID ==
[~2020-05-03] VITALS: Ht 160 cm; Wt 109.3 kg
[2020-05-13] MEDS ORDERED: Lidocaine 4% Top Soln 50ml TOPIC ONE (09:45)
[2020-05-19] MEDS ORDERED: Lidocaine 4% Top Soln 50ml TOPIC ONE (15:45)
== END 2020-05-19 | disposition home or self-care (01) ==
LOC: WCC 11:32
DX: L97.822 Non-pressure chronic ulcer of other part of left lower leg with fat layer exposed (principal); I87.312 Chronic venous hypertension (idiopathic) with ulcer of left lower extremity; L97.511 Non-pressure chronic ulcer of other part of right foot limited to breakdown of skin; Z88.6 Allergy status to analgesic agent; Z88.0 Allergy status to penicillin; Z88.2 Allergy status to sulfonamides; Z90.49 Acquired absence of other specified parts of digestive tract; M19.90 Unspecified osteoarthritis, unspecified site; J44.9 Chronic obstructive pulmonary disease, unspecified; K21.9 Gastro-esophageal reflux disease without esophagitis; E03.9 Hypothyroidism, unspecified; E66.01 Morbid (severe) obesity due to excess calories; I51.9 Heart disease, unspecified; Z79.899 Other long term (current) drug therapy
CPT/HCPCS: 11042; 11045; 15271; 15272; 29580; 87070; 87205; Q4103

== ENCOUNTER 2020-05-31 11:42 | Outpatient (RCR) | payer MEDICARE, MEDICAID | END 2020-06-19 | disposition home or self-care (01) | LOC: WCC 11:42 | DX: L97.822 Non-pressure chronic ulcer of other part of left lower leg with fat layer exposed (principal); I87.312 Chronic venous hypertension (idiopathic) with ulcer of left lower extremity; Z88.6 Allergy status to analgesic agent; Z88.0 Allergy status to penicillin; Z88.2 Allergy status to sulfonamides; Z90.49 Acquired absence of other specified parts of digestive tract; J44.9 Chronic obstructive pulmonary disease, unspecified; K21.9 Gastro-esophageal reflux disease without esophagitis; E03.9 Hypothyroidism, unspecified; M19.90 Unspecified osteoarthritis, unspecified site; Z79.899 Other long term (current) drug therapy; I51.9 Heart disease, unspecified | CPT/HCPCS: 11042; 11045; 15271; 15272; Q4103 ==

== ENCOUNTER 2020-06-21 08:22 | Outpatient (RCR) | payer MEDICARE, MEDICAID ==
[~2020-06-21] VITALS: Ht 160 cm; Wt 106.6 kg
[2020-07-13] MEDS ORDERED: Lidocaine 4% Top Soln 50ml TOPIC ONE (13:15)
== END 2020-07-19 | disposition home or self-care (01) ==
LOC: WCC 08:22
DX: L97.822 Non-pressure chronic ulcer of other part of left lower leg with fat layer exposed (principal); I87.312 Chronic venous hypertension (idiopathic) with ulcer of left lower extremity; Z88.6 Allergy status to analgesic agent; Z88.0 Allergy status to penicillin; Z88.2 Allergy status to sulfonamides; Z90.49 Acquired absence of other specified parts of digestive tract; J44.9 Chronic obstructive pulmonary disease, unspecified; K21.9 Gastro-esophageal reflux disease without esophagitis; M19.90 Unspecified osteoarthritis, unspecified site; E03.9 Hypothyroidism, unspecified; I51.9 Heart disease, unspecified; Z79.899 Other long term (current) drug therapy
CPT/HCPCS: 11042; 11045; 15271; 15272; Q4103

== ENCOUNTER 2020-07-22 09:54 | Outpatient (RCR) | payer MEDICARE, MEDICAID ==
[~2020-07-22] VITALS: Ht 160 cm; Wt 106.6 kg
[2020-08-03] MEDS ORDERED: Lidocaine 4% Top Soln 50ml TOPIC ONE (14:45)
== END 2020-08-19 | disposition home or self-care (01) ==
LOC: WCC 09:54
DX: L97.822 Non-pressure chronic ulcer of other part of left lower leg with fat layer exposed (principal); I87.312 Chronic venous hypertension (idiopathic) with ulcer of left lower extremity; L97.511 Non-pressure chronic ulcer of other part of right foot limited to breakdown of skin; Z88.6 Allergy status to analgesic agent; Z88.0 Allergy status to penicillin; Z88.2 Allergy status to sulfonamides; Z90.49 Acquired absence of other specified parts of digestive tract; J44.9 Chronic obstructive pulmonary disease, unspecified; K21.9 Gastro-esophageal reflux disease without esophagitis; M19.90 Unspecified osteoarthritis, unspecified site; E66.01 Morbid (severe) obesity due to excess calories; E03.9 Hypothyroidism, unspecified; I51.9 Heart disease, unspecified; Z79.899 Other long term (current) drug therapy
CPT/HCPCS: 11042; 11045; 29580

== ENCOUNTER 2020-08-23 10:21 | Outpatient (RCR) | payer MEDICARE, MEDICAID ==
[~2020-08-23] VITALS: Ht 160 cm; Wt 106.6 kg
[2020-09-16] MEDS ORDERED: Lidocaine 4% Top Soln 50ml TOPIC ONE (10:15)
== END 2020-09-19 | disposition home or self-care (01) ==
LOC: WCC 10:21
DX: L97.822 Non-pressure chronic ulcer of other part of left lower leg with fat layer exposed (principal); I87.312 Chronic venous hypertension (idiopathic) with ulcer of left lower extremity; Z88.6 Allergy status to analgesic agent; Z88.0 Allergy status to penicillin; Z88.2 Allergy status to sulfonamides
CPT/HCPCS: 11042; 11045; 29580

== ENCOUNTER 2020-09-20 09:14 | Outpatient (RCR) | payer MEDICARE, MEDICAID ==
[~2020-09-20] VITALS: Ht 160 cm; Wt 106.6 kg
[2020-10-05] MEDS ORDERED: Lidocaine 4% Top Soln 50ml TOPIC ONE (14:15)
== END 2020-10-17 | disposition home or self-care (01) ==
LOC: WCC 09:14
DX: L97.822 Non-pressure chronic ulcer of other part of left lower leg with fat layer exposed (principal); I87.312 Chronic venous hypertension (idiopathic) with ulcer of left lower extremity; Z88.6 Allergy status to analgesic agent; Z88.0 Allergy status to penicillin; Z88.2 Allergy status to sulfonamides
CPT/HCPCS: 11042; 11045; 29580